=== PATIENT | male | born 1955 | race Caucasian/White ===

== ENCOUNTER 2017-08-06 07:36 | Day surgery (SDC) | payer MEDICARE, BC ==
[2017-08-05 08:47] VITALS: BMI 39.0
[~2017-08-06 07:36] MED LIST: LACTATED RINGERS 1,000 ML IV SCH
[2017-08-06 08:57] VITALS: TEMP 97.8
[2017-08-06] MEDS ORDERED: LIDOCAINE 1% 20 ML VIAL (10MG/ML) FOR IV START INTRADERMA ONE (09:10)
[2017-08-06 09:14] LABS: Glucose,Whole Blood 111 mg/dL (75-99)
[2017-08-06] MEDS ORDERED: GLYCOPYRROLATE 0.2 MG/ML 2 ML VIAL ONE (09:28)
[2017-08-06] MEDS ORDERED: LIDOCAINE 1% INJ 10MG/ML (20 ML MDV) ONE (09:28)
[2017-08-06] MEDS ORDERED: PROPOFOL 10 MG/ML 20 ML VIAL IV ONE (09:28)
--- NOTE | 2017-08-06 09:55 | P.PCN ---
Date of Procedure: 08/06/17 Procedure(s) Performed: Brief history: Patient is a pleasant 61-year-old white male, scheduled for an elective upper endoscopy as well as colonoscopy as a part of evaluation of right-sided abdominal pain for the last 6 months duration. He occasionally has diarrhea. Pain radiates to the back and occasional epigastric area. CT of the abdomen and pelvis done in February 2017 showed diverticulosis. Lately his symptoms have been progressively getting worse and hence he scheduled for an upper endoscopy as well as colonoscopy to evaluate further. Procedure performed: Esophagogastroduodenoscopy with biopsy Colonoscopy with snare polypectomy Preoperative diagnosis: Abdominal pain Change in bowel habits Anesthesia: MAC Procedure: After informed consent was obtained from the patient was brought into the endoscopy unit and IV sedation was administered by anesthesia under continuous monitoring. Initially upper endoscopy was done. The Olympus GF 160 video endoscope was inserted inserted into the mouth and esophagus intubated without any difficulty and was gradually advanced into the stomach and duodenum and carefully examined. The bulb and second part of the duodenum appeared normal. The scope was then withdrawn into the stomach adequately insufflated with air and upon careful examination the antrum had diffuse linear areas of erythema consistent with gastritis and biopsies were done from this area. The body, cardia and fundus appeared normal. The scope was then withdrawn into the esophagus. The GE junction was located at 40 cm to the incisors. there was a 1 cm polyp at the GE junction which was biopsied. It appeared regular with no erythema erosions or ulcerations. Rest of the esophagus appeared normal. Patient tolerated the procedure well. At this time the patient continued to remain sedation. Initial digital rectal examination was normal. Olympus CF 160 video colonoscope was then inserted into the rectum and gradually advanced to the ascending colon where ileocolic anastomosis was visualized and appeared normal. The ascending colon, transverse colon, descending colon, appeared normal in the sigmoid colon there were scattered diverticulosis seen. There was a 1 cm sigmoid colon polyp identified at 30 cm from the anal verge which was removed by snare polypectomy. Rest of thesigmoid colon and rectum appeared normal. Retroflexion was performed in the rectum and no lesions were noted. Patient tolerated the procedure well. Impression: 1. Upper endoscopy revealed 1 cm GE junction polyp status post biopsy and antral diffuse gastritis 2. Colonoscopy revealed 1 cm sigmoid colon polyp status post polypectomy and scattered sigmoid diverticulosis. Recommendations: Findings of this examination were discussed with the patient as well as his family. He was advised to follow with the biopsy results. He'll be seen in office in 2 weeks.
[2017-08-06 10:00] VITALS: PULSE 67
[2017-08-06 10:07] LABS: Glucose,Whole Blood 104 mg/dL (75-99)
[2017-08-06 10:22] VITALS: BP 129/88; RESP 18
== END 2017-08-06 11:05 | disposition home or self-care (01) ==
LOC: ORWHC2ENDO 07:36
PROVIDERS: ATTEND Internal Medicine Gastroenterology
DX: K29.50 Unspecified chronic gastritis without bleeding (principal); K51.40 Inflammatory polyps of colon without complications; K57.30 Diverticulosis of large intestine without perforation or abscess without bleeding; I10 Essential (primary) hypertension; E78.5 Hyperlipidemia, unspecified; E11.9 Type 2 diabetes mellitus without complications; Z85.46 Personal history of malignant neoplasm of prostate; Z79.4 Long term (current) use of insulin; Z79.899 Other long term (current) drug therapy; Z98.0 Intestinal bypass and anastomosis status
CPT/HCPCS: 88305; 45385; 43239; J2001; J2704

== ENCOUNTER → 2017-09-10 | Day surgery (SDC) | payer MEDICARE, BC ==
[2017-09-07 08:48] VITALS: BMI 39.0
[~2017-09-10] MED LIST changes: +LIDOCAINE 1% 20 ML VIAL (10MG/ML) FOR IV START INTRADERMA PRN; +LIDOCAINE 1% INJ 10MG/ML (20 ML MDV) ONE; +MIDAZOLAM 2 MG/2 ML VIAL ONE; +PROPOFOL 10 MG/ML 20 ML VIAL IV ONE; +SODIUM CHLORIDE 0.9% 1,000 ML IV SCH; +fentaNYL (PF) 50 MCG/ML 2 ML AMP ONE
[2017-09-10 09:07] LABS: Glucose,Whole Blood 97 mg/dL (75-99)
[2017-09-10 09:17] VITALS: RESP 18; TEMP 98.2
[2017-09-10] MEDS: BENZOCAINE SPRAY 1 CAN MUCOUS MEM ONE ×2 (10:08→10:16)
--- NOTE | 2017-09-10 10:44 | P.PCN ---
Date of Procedure: 09/10/17 Preoperative Diagnosis: Severe aortic stenosis Postoperative Diagnosis: The same Procedure(s) Performed: CHANDU with brief general anesthesia Description of Procedure: INDICATION: This is a 60-year-old gentleman with history of hypertension, hypercholesteremia, and diabetes who is known to have aortic stenosis. Recent echocardiogram showed advanced aortic stenosis with a peak gradient of 70 and mean of 54. Patient is advised to have a CHANDU examination for further evaluation CONSENT:. Informed consent was obtained from the patient and family verbally PROCEDURE: Patient was brought to the lab in a fasting state. He was prepped and draped in the usual fashion. Department of anesthesia administered IV sedation. The throat was sprayed with Cetacaine. A lubricated Omni probe was introduced into the oropharynx and was advanced into the esophagus. Multiple views were obtained both from the esophagus and stomach. No immediate complications. During the procedure, Patient oxygen saturation dropped, requiring Ambu bag ventilation which was administered by department of anesthesia FINDINGS: The aortic valve is tricuspid and calcified with restricted opening excursion. By planimetry valve area 0.8-1 cm was obtained. A peak gradient of 55 with a mean of 32 was obtained. The left atrial appendage is free of clot. The mitral valve and Paxil function appeared within normal. There is no evidence of PFO. Left ankle function appear to be normal. There is no plaque in the aorta. IMPRESSION: #1. Severe aortic stenosis. #2. No clot in left atrial appendage #3. No PFO PLAN: Cardiac catheterization and possible aortic valve replacement
[2017-09-10 12:17] VITALS: PULSE 50
[2017-09-10 12:20] VITALS: BP 134/65
== END ==
LOC: CATHCVL 08:42
PROVIDERS: ATTEND Internal Medicine Cardiovascular Disease
DX: I35.0 Nonrheumatic aortic (valve) stenosis (principal); C61 Malignant neoplasm of prostate; R94.31 Abnormal electrocardiogram [ECG] [EKG]; E11.9 Type 2 diabetes mellitus without complications; I10 Essential (primary) hypertension; E78.00 Pure hypercholesterolemia, unspecified; R01.1 Cardiac murmur, unspecified; I49.40 Unspecified premature depolarization; Z79.4 Long term (current) use of insulin; Z79.899 Other long term (current) drug therapy; Z79.891 Long term (current) use of opiate analgesic; Z87.891 Personal history of nicotine dependence
CPT/HCPCS: 93312; 93320; 93325; J2250; J2001; J3010; J2704

== ENCOUNTER 2017-09-27 11:08 | Day surgery (SDC) | payer MEDICARE, BC ==
[2017-09-24 08:24] VITALS: BMI 39.0
[~2017-09-27 11:08] MED LIST changes: +ALPRAZolam 0.25 MG TAB PO PRN; +ASPIRIN 325 MG TAB PO ONE; -LACTATED RINGERS 1,000 ML IV SCH; -LIDOCAINE 1% 20 ML VIAL (10MG/ML) FOR IV START INTRADERMA PRN; -LIDOCAINE 1% INJ 10MG/ML (20 ML MDV) ONE; -MIDAZOLAM 2 MG/2 ML VIAL ONE; -PROPOFOL 10 MG/ML 20 ML VIAL IV ONE; -SODIUM CHLORIDE 0.9% 1,000 ML IV SCH; +SODIUM CHLORIDE 0.9% 1,000 ML in EMPTY BAG 1 BAG IV ONE; -fentaNYL (PF) 50 MCG/ML 2 ML AMP ONE
[2017-09-27 11:42] LABS: Glucose,Whole Blood 93 mg/dL (75-99)
[2017-09-27] MEDS ORDERED: LIDOCAINE 2% INJ 20 MG/ML (20 ML MDV) ONE (11:51)
[2017-09-27 11:53] LABS: Basophils % (A) 0 %; Eosinophils # (A) 0.2 k/uL (0-0.7); Eosinophils % (A) 4 %; HCT 41.6 % (39.0-53.0); HGB 14.1 gm/dL (13.0-17.5); Lymphocytes # (A) 0.8 k/uL (1.0-4.8); Lymphocytes % (A) 16 %; MCH 28.2 pg (25.0-35.0); MCHC 33.9 g/dL (31.0-37.0); Mean Platelet Volume 7.7; Monocytes # (A) 0.4 k/uL (0-1.0); Monocytes % (A) 7 %; Neutrophils # (A) 3.4 k/uL (1.3-7.7); Neutrophils % (A) 71 %; Platelet Count 187 k/uL (150-450); RBC 5.01 m/uL (4.30-5.90); RDW 13.5 % (11.5-15.5); WBC 4.8 k/uL (3.8-10.6)
[2017-09-27 11:56] LABS: Anion Gap 12 mmol/L; Blood Urea Nitrogen 13 mg/dL (9-20); Carbon Dioxide 30 mmol/L (22-30); Chloride 102 mmol/L (98-107); Glucose 94 mg/dL (74-99); Potassium 3.8 mmol/L (3.5-5.1); Sodium 144 mmol/L (137-145)
[2017-09-27] MEDS ORDERED: MIDAZOLAM 2 MG/2 ML VIAL ONE (12:08)
[2017-09-27] MEDS ORDERED: fentaNYL (PF) 50 MCG/ML 2 ML AMP ONE (12:08)
[2017-09-27] MEDS: MIDAZOLAM 2 MG/2 ML VIAL IVP ONE ×2 (12:18→12:24)
[2017-09-27] MEDS ORDERED: fentaNYL (PF) 50 MCG/ML 2 ML AMP IVP ONE (12:18)
[2017-09-27] MEDS ORDERED: LIDOCAINE 2% INJ 20 MG/ML SQ ONE (12:24)
[2017-09-27 12:57] LABS: O2 Sat Blood Gas 72.8 %
[2017-09-27 13:00] LABS: O2 Sat Blood Gas 93.1 %
[2017-09-27] MEDS ORDERED: HYDROcodone/APAP 5-325MG 1 EACH TAB PO PRN (13:24)
[2017-09-27] MEDS ORDERED: RX INFO: IV CONTRAST WAS GIVEN 1 EACH MISC MISCELLANE PRN (13:24)
[2017-09-27] MEDS ORDERED: SODIUM CHLORIDE 0.9% 1,000 ML IV SCH (13:30)
--- NOTE | 2017-09-27 13:37 | P.PCN ---
Date of Procedure: 09/27/17 Preoperative Diagnosis: Aortic stenosis Postoperative Diagnosis: Moderate aortic stenosis Procedure(s) Performed: Left heart catheterization without left ventriculography, right heart catheterization Description of Procedure: HISTORY: This is a 62-year-old gentleman with history of diabetes and hypertension who is known to have aortic stenosis. On recent evaluation. Patient appeared to have increasing gradient with a peak gradient of 50. Patient had a CHANDU examination which was also size to of possible severe aortic stenosis. Patient is advised to have cardiac catheterization to assess aortic stenosis and also to rule out coronary artery disease. CONSENT:I have discussed the risks, benefits and alternative therapies for the above-mentioned procedure and for both sedation/analgesia as well as necessary blood product administration, if indicated, as they pertain to this patient. The patient has indicated understanding and acceptance of the risks and procedures discussed. [] PROCEDURE: Right heart catheterization:Patient was brought to the lab in a fasting state. Patient was given some IV sedation. The right groin is infiltrated with lidocaine and right femoral Pain was entered using Seldinger technique. A 7-Cymro catheter was left in place And right heart catheterization was performed using Drumore-Lyle catheter. Patient tolerated the procedure well. Hemostasis was obtained with the manual compression. Left heart catheterization: Left heart catheterization was done from the right groin. The right femoral artery was entered using Seldinger technique. A 6-Cymro sheath is left in place.Left heart catheterization was performed using Xuan catheters. The aortic valve was crossed using a multipurpose catheter and straight glide catheter. Hemostasis was obtained with Angio-Seal, after performing femoral angiogram. Noimmediate complications were noted and patient was transferred to [facility] in a stable condition Conscious Sedation: Versed []mg Fentanyl 50 g Duration 52 minutes HEMODYNAMICS: Right heart catheterization: The right atrial pressure was 7. Right ventricular pressure was 37/6. The pulmonary artery pressure is 41/11/ 26. Pulmonary wedge pressure is about 12-16. The cardiac output by thermodilution method was 8.6 L and about 7.54 L with the Ramu method. There is no stepup in oxygen saturation. Oxygen saturation in the PDA is 72 in our is 72 and FA was 93.1. Left heart catheterization: The aortic pressure is 150/ 70. Left ankle end-diastolic pressure was 12-16. The peak gradient across the aortic valve was 40. The mean of 36. The valve area is about 1.5-1.6. SELECTIVE CORONARY ARTERIOGRAPHY: [] LEFT MAIN: Normal length and patent THE LEFT ANTERIOR DESCENDING CORONARY ARTERY: This is a relatively small caliber vessel with mild disease at the origin of the second diagonal branch involving the diagonal branch. No critical lesions are noted THE LEFT CIRCUMFLEX AND IS CORONARY ARTERY: This is a good caliber vessel free of any significant occlusive di THE INTERMEDIATE CORONARY ARTERY: This is small caliber vessel and free of occlusive disease THE RIGHT CORONARY ARTERY: This is a dominant vessel giving rise to PDA and PLV. Slightly ectatic in origin. It gives rise to PDA and PLV and the right ventricular branch. Free of any occlusive disease LEFT VENTRICULOGRAPHY: Not performed FINAL IMPRESSION: Mild disease in the LAD at the origin of the second diagonal. Moderate aortic stenosis PLAN: Continuation maximum medical therapy. Follow up with echocardiography PROGNOSIS: Fair
[2017-09-27] MEDS ORDERED: IOPAMIDOL-370 125ML BTL INJ ONE (13:38)
[2017-09-27] MEDS ORDERED: LABETALOL 5 MG/ML VIAL MDV IVP STA (14:34)
[2017-09-27 16:40] VITALS: RESP 16; TEMP 98.1
[2017-09-27 20:04] VITALS: BP 158/68; PULSE 65
== END 2017-09-27 20:10 | disposition home or self-care (01) ==
LOC: CATHCVL 11:08 → 3OBS 13:18 → CATHCVL 20:10
PROVIDERS: ATTEND Internal Medicine Cardiovascular Disease
DX: I35.0 Nonrheumatic aortic (valve) stenosis (principal); I10 Essential (primary) hypertension; E78.00 Pure hypercholesterolemia, unspecified; E11.9 Type 2 diabetes mellitus without complications; I49.3 Ventricular premature depolarization; Z79.4 Long term (current) use of insulin; Z79.899 Other long term (current) drug therapy; Z87.891 Personal history of nicotine dependence
CPT/HCPCS: 93460; 80048; 85018; 82810; 85025; C1760; C1769 ×2; C1894 ×2; J2001; J2250; J3010; Q9967

== ENCOUNTER 2019-03-11 21:44 | Inpatient (IN) | payer MEDICARE, BC ==
[2019-03-11] MEDS ORDERED: PNEUMONIA PROTOCOL UTILIZED 1 EACH MISC PO PRN (21:47)
[2019-03-11] MEDS ORDERED: POTASSIUM BICARBONATE/CIT AC 20 MEQ TABLET.EFF PO ONE (21:47)
[2019-03-11] MEDS ORDERED: LEVOFLOXACIN 750MG-D5W PMX 750 MG in DEXTROSE/WATER 1 150ML.BAG IVPB STA (21:47)
[2019-03-11] MEDS ORDERED: MORPHINE SULFATE 4 MG/ML SYRINGE IV PRN (21:47)
--- NOTE | 2019-03-11 21:51 | ED ---
SOB HPI - General Stated Complaint: Pneumonia Time Seen by Provider: 03/11/19 21:47 Source: RN notes reviewed, old records reviewed Limitations: no limitations - History of Present Illness Initial Comments: This is a Is 63-year-old male the ER for evaluation patient is today for evaluation, patient accepted in transfer from outside facility for shortness of breath and chest pain chest pain 2 days. Patient has not been eating or drinking for a week. Not feeling well. Patient has no recent travel history or sick contacts does have inpatient hospitalization as of late. Surgery at [facility]. Patient at this time is in no acute distress chest pain is resolved no shortness of breath. No fever - Related Data Home Medications Medication Instructions Recorded Confirmed Doxazosin [Cardura] 4 mg PO HS 12/27/15 09/27/17 Insulin Detemir (Levemir) [Levemir] 50 unit SQ BID 12/27/15 09/27/17 Metoprolol Succinate [Toprol XL] 100 mg PO DAILY 12/27/15 09/27/17 Pioglitazone HCl [Actos] 30 mg PO HS 12/27/15 09/27/17 amLODIPine BESYLATE [Norvasc] 10 mg PO DAILY 12/27/15 09/27/17 Atorvastatin [Lipitor] 40 mg PO HS 08/05/17 09/27/17 Dicyclomine HCl 10 mg PO TID PRN 08/05/17 09/24/17 Valsartan/Hydrochlorothiazide 2 each PO DAILY 08/05/17 09/27/17 [Valsartan-Hctz 160-25 mg Tab] buPROPion XL [Wellbutrin XL] 300 mg PO DAILY 08/05/17 09/27/17 Aspirin [Adult Aspirin] 81 mg PO HS 09/07/17 09/27/17 Dulaglutide [Trulicity] 0.75 mg SQ LENZ 09/07/17 09/27/17 Allergies Allergy/AdvReac Type Severity Reaction Status Date / Time No Known Allergies Allergy Verified 09/24/17 08:20 Review of Systems ROS Statement: Those systems with pertinent positive or pertinent negative responses have been documented in the HPI. ROS Other: All systems not noted in ROS Statement are negative. Past Medical History Past Medical History: Cancer, Diabetes Mellitus, Hyperlipidemia, Osteoarthritis (OA), Prostate Disorder Additional Past Medical History / Comment(s): hx PROSTATE CANCER tx with radiation, See Dr Roy H&P, IBS, History of Any Multi-Drug Resistant Organisms: None Reported Past Surgical History: Appendectomy, Bowel Resection, Cholecystectomy, Hernia Repair, Orthopedic Surgery, Tonsillectomy Additional Past Surgical History / Comment(s): CHANDU 09/10/17, synvisc injections into bilateral legs, benign growth removed from intestine, rt knee arthroscopy Past Anesthesia/Blood Transfusion Reactions: Postoperative Nausea & Vomiting (PONV) Smoking Status: Never smoker - Past Family History Mother Family Medical History: No Reported History General Exam General appearance: alert, in no apparent distress Head exam: Present: atraumatic, normocephalic, normal inspection Eye exam: Present: normal appearance, PERRL, EOMI. Absent: scleral icterus, conjunctival injection, periorbital swelling ENT exam: Present: normal exam, mucous membranes moist Neck exam: Present: normal inspection. Absent: tenderness, meningismus, lymphadenopathy Respiratory exam: Present: normal lung sounds bilaterally. Absent: respiratory distress, wheezes, rales, rhonchi, stridor Cardiovascular Exam: Present: regular rate, normal rhythm, normal heart sounds. Absent: systolic murmur, diastolic murmur, rubs, gallop, clicks GI/Abdominal exam: Present: soft, normal bowel sounds. Absent: distended, tenderness, guarding, rebound, rigid Extremities exam: Present: normal inspection, full ROM, normal capillary refill. Absent: tenderness, pedal edema, joint swelling, calf tenderness Back exam: Present: normal inspection Neurological exam: Present: alert, oriented X3, CN II-XII intact Psychiatric exam: Present: normal affect, normal mood Skin exam: Present: warm, dry, intact, normal color. Absent: rash Course - Reevaluation(s) Reevaluation #1: 03/11/19 21:50 Medical record is reviewed Reevaluation #2: 03/11/19 21:50 No Current pain or complaint 03/11/19 21:51 - Consultations Consultation #1: Spoke with Dr. Archibald who is okay for admission Medical Decision Making - Medical Decision Making 63 male with require hospital. Pneumonia will admit for IV antibiotics and br eathing treatments will also trend patient's troponin secondary to chest pain Disposition Clinical Impression: Chest pain, Nosocomial pneumonia Disposition: ADMITTED IP TO THIS HOSP Condition: Good Is patient prescribed a controlled substance at d/c from ED?: No Referrals: Margaret Grant DO [Primary Care Provider] - 1-2 days
[2019-03-11] MEDS: SODIUM CHLORIDE 0.9% 1,000 ML IV SCH (22:46)
[2019-03-11] MEDS ORDERED: PIPERACILLIN-TAZOBACTAM 3.375 GM in SODIUM CHLORIDE 0.9% 100 ML IVPB SCH (23:00)
[2019-03-12] MEDS ORDERED: ACETAMINOPHEN TAB 325 MG TAB PO PRN (06:29)
[2019-03-12] MEDS ORDERED: ALPRAZolam 0.25 MG TAB PO PRN (06:29)
[2019-03-12] MEDS ORDERED: LIDOCAINE 5% OINTMENT 50 GM JAR TOPICAL PRN (06:29)
[2019-03-12] MEDS ORDERED: HYDROcodone/APAP 5-325MG 1 EACH TAB PO PRN (06:29)
[2019-03-12] MEDS ORDERED: INSULIN DETEMIR (LEVEMIR) 100 UNIT/ML SYR SQ SCH (07:00)
--- NOTE | 2019-03-12 07:03 | XR ---
EXAMINATION TYPE: XR chest 2V DATE OF EXAM: 03/12/2019 HISTORY: pneumonia. REFERENCE: NONE. FINDINGS: Heart size upper limits of normal. There is scarring or atelectasis the left lung base. The re are bibasilar infiltrates. Pleural spaces are clear. IMPRESSION: BIBASILAR AREAS OF SCARRING OR ATELECTASIS WELL BIBASILAR INFILTRATES.
[2019-03-12 07:10] LABS: Glucose,Whole Blood 72 mg/dL (75-99)
[2019-03-12 07:19] LABS: Basophils % (A) 0 %; Eosinophils % (A) 0 %; HCT 36.5 % (39.0-53.0); HGB 12.2 gm/dL (13.0-17.5); Lymphocytes # (A) 0.5 k/uL (1.0-4.8); Lymphocytes % (A) 7 %; MCH 26.3 pg (25.0-35.0); MCHC 33.4 g/dL (31.0-37.0); MCV 78.7 fL (80.0-100.0); Mean Platelet Volume 6.2; Monocytes # (A) 0.4 k/uL (0-1.0); Monocytes % (A) 6 %; Neutrophils # (A) 6.5 k/uL (1.3-7.7); Neutrophils % (A) 85 %; Platelet Count 289 k/uL (150-450); RBC 4.64 m/uL (4.30-5.90); RDW 14.1 % (11.5-15.5); WBC 7.6 k/uL (3.8-10.6)
[2019-03-12 07:43] LABS: ALT 131 U/L (21-72); AST 237 U/L (17-59); African American GFR (CKD) >90 (>60 ml/min/1.73 sqM); Albumin 3.1 g/dL (3.5-5.0); Alkaline Phosphatase 106 U/L (38-126); Anion Gap 11 mmol/L; Blood Urea Nitrogen 16 mg/dL (9-20); Calcium 8.5 mg/dL (8.4-10.2); Carbon Dioxide 24 mmol/L (22-30); Chloride 101 mmol/L (98-107); Cholesterol 127 mg/dL (<200); Glucose 68 mg/dL (74-99); HDL Cholesterol 20 mg/dL (40-60); LDL Cholesterol,Calculated 84 mg/dL (0-99); Sodium 136 mmol/L (137-145); Total Bilirubin 0.6 mg/dL (0.2-1.3); Total Protein 6.8 g/dL (6.3-8.2); Triglycerides 114 mg/dL (<150)
[2019-03-12] MEDS ORDERED: IPRATROPIUM-ALBUTEROL 3 ML NEB INHALATION SCH (08:00)
--- NOTE | 2019-03-12 08:13 | P.HPIM ---
History of Present Illness H&P Date: 03/12/19 Chief Complaint: Weakness, chest pain This is a 63-year-old male who presented to the emergency room for evaluation for weakness and chest pain. Patient was seen at [facility] with a complaint of shortness of breath and chest pain 2 days. Patient states that he has not been eating or drinking very much of this week due to feeling poorly. Patient has had chest pain for about a week and progressively felt weaker prior to going to the hospital. Patient had an episode of weakness that resulted in syncope where he hit his head resulting in a bruise to the forehead. Patient denies any loss of consciousness at that time. That episode prompted him to be evaluated in the emergency room. Patient has a significant history of recurrent prostate cancer. Patient was seen in [facility] in October where he underwent a ICU TURP procedure with Dr. Da Silva. Approximate 2 weeks after the procedure patient had episodes of diarrhea. 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 The indwelling catheter was placed at that time. Patient is seen every 3 weeks to have the catheter change. 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 At this time patient is resting in bed without any acute distress. Patient is not having any complaints of chest pain or difficulty breathing at this time. Patient has been afebrile. Indwelling c atheter is in place. Patient states that he was found to have low potassium and thinks that many of his symptoms may be from that. Review of Systems Review Of Systems: Constitutional: No fever, no chills, no night sweats. No weight change. No weakness, fatigue or lethargy. No daytime sleepiness. EENT: No headache. No blurred vision or double vision, no loss of vision. No loss of Hearing, no ringing in the ears, no dizziness. No nasal drainage or congestion. No epistaxis. No sore throat. Lungs: No shortness of breath, cough, no sputum production. No wheezing. Cardiovascular: No chest pain, no lower extremity edema. No palpitations. No paroxysmal nocturnal dyspnea. No orthopnea. No lightheadedness or dizziness. No syncopal episodes. Abdominal: no abdominal discomfort. No nausea, vomiting. no diarrhea. No constipation. No bloody or tarry stools. no loss of appetite. Genitourinary: No dysuria, increased frequency, or urgency. No urinary ret ention. Musculoskeletal: No myalgias. No muscle weakness, no gait dysfunction, no frequent falls. No back pain. No neck pain. Integumentary: No wounds, no lesions. No rash or pruritus. No unusual bruising. No change in hair or nails. Neurologic: No aphasia. No facial droop. No change in mentation. No head injury. No headache. No paralysis. No paresthesia. Psychiatric: No depression. No anxiety. No mood swings. Endocrine: No abnormal blood sugars. No weight change. No excessive sweating or thirst. Past Medical History Past Medical History: Cancer, Diabetes Mellitus, Hyperlipidemia, Hypertension, Osteoarthritis (OA), Prostate Disorder Additional Past Medical History / Comment(s): hx PROSTATE CANCER tx with radiation, See Dr Roy H&P, IBS, History of Any Multi-Drug Resistant Organisms: None Reported Past Surgical History: Appendectomy, Bowel Resection, Cholecystectomy, Hernia Repair, Orthopedic Surgery, Tonsillectomy Additional Past Surgical History / Comment(s): CHANDU 09/10/17, synvisc injections into bilateral legs, benign growth removed from intestine, rt knee arthroscopy Past Anesthesia/Blood Transfusion Reactions: Postoperative Nausea & Vomiting (PONV) Past Psychological History: Anxiety, Depression Smoking Status: Never smoker Past Alcohol Use History: Occasional Past Drug Use History: None Reported - Past Family History Mother Family Medical History: No Reported History Medications and Allergies Home Medications Medication Instructions Recorded Confirmed Type Insulin Detemir (Levemir) [Levemir] 46 unit SQ BID 12/27/15 03/11/19 History Metoprolol Succinate [Toprol XL] 100 mg PO DAILY 12/27/15 03/11/19 History amLODIPine BESYLATE [Norvasc] 10 mg PO DAILY 12/27/15 03/11/19 History Atorvastatin [Lipitor] 40 mg PO HS 08/05/17 03/11/19 History Valsartan/Hydrochlorothiazide 2 tab PO DAILY 08/05/17 03/11/19 History [Valsartan-Hctz 160-25 mg Tab] buPROPion XL [Wellbutrin XL] 300 mg PO DAILY 08/05/17 03/11/19 History ALPRAZolam [Xanax] 0.25 mg PO TID PRN 03/11/19 03/11/19 History Acetaminophen Tab [Tylenol Tab] 650 mg PO Q4H PRN 03/11/19 03/11/19 History Ciprofloxacin HCl [Cipro] 500 mg PO BID 03/11/19 03/11/19 History Doxazosin [Cardura] 4 mg PO HS 03/11/19 03/11/19 History Dulaglutide [Trulicity] 1.5 mg SQ LENZ 03/11/19 03/11/19 History HYDROcodone/APAP 5-325MG [[place] 1 tab PO Q6HR PRN 03/11/19 03/11/19 History 5-325] Lidocaine 5% Oint [Xylocaine 5% 1 applic TOPICAL TID PRN 03/11/19 03/11/19 History Oint] Multivitamins, Thera [Multivitamin 1 tab PO DAILY 03/11/19 03/11/19 History (formulary)] [place]-3 Fatty Acids/Fish Oil [Fish 1 cap PO DAILY 03/11/19 03/11/19 History Oil 1,000 mg Softgel] Turmeric Root Extract [Turmeric] 1,000 mg PO DAILY 03/11/19 03/11/19 History Vits A,C,E/Lutein/Minerals 1 tab PO DAILY 03/11/19 03/11/19 History [Ocuvite with Lutein Tablet] metFORMIN HCL ER [Glucophage Xr] 500 mg PO BID 03/11/19 03/11/19 History Allergies Allergy/AdvReac Type Severity Reaction Status Date / Time No Known Allergies Allergy Verified 03/11/19 22:21 Physical Exam Vitals: Vital Signs Temp Pulse Pulse Resp BP BP Pulse Ox 03/12/19 07:00 98.3 F 81 18 147/80 95 03/11/19 23:30 98.2 F 76 16 149/71 95 03/11/19 21:56 18 03/11/19 21:46 98.9 F 82 160/78 96 Intake and Output 03/11/19 03/12/19 03/12/19 23:59 06:59 14:59 Intake Total 200 Balance 200 Intake: Intake, IV Titration Amount Piperacillin-Tazobactam 3 .375 gm In Sodium Chloride 0.9% 100 ml @ 25 mls/hr IVPB Q8H [facility] Rx#: [id number] Sodium Chloride 0.9% 1, 000 ml @ 100 mls/hr IV . Q10H [facility] Rx#:[id number] Oral 200 Other: Voiding Method # Voids Weight General Appearance: Alert, cooperative, no distress, appears stated age. Neck HEENT: Supple, no lymphadenopathy, no thyroid enlargement, no carotid bruits. Lungs: Clear to auscultation without crackles or wheezes no rhonchi, no deformity. Chest Wall: Chest wall normal expansion with deep inspiration no tenderness and no deformity was found on exam, no costochondral pain or discomfort. Heart: Regular rate and rhythm, S1, S2 normal, no murmur, rub or gallop. Back: Symmetric, no curvature, ROM normal, no CVA tenderness. Abdomen: Soft, non-tender, no rebound or rigidity, no hepatosplenomegaly. Extremities: Extremities normal, atraumatic, no cyanosis or edema. Pulses: 2+ and symmetric. Skin: Skin color, texture, tugor normal, no rashes or lesions. Neurologic: Alert oriented x3 cranial nerves II through XII intact, no motor deficit, no abnormal balance or gait Results CBC & Chem 7: 03/12/19 07:00 03/12/19 07:00 Labs: Abnormal Lab Results - Last 24 Hours (Table) 03/12/19 03/12/19 03/12/19 Range/Units 07:00 07:00 07:08 Hgb 12.2 L (13.0-17.5) gm/dL Hct 36.5 L (39.0-53.0) % MCV 78.7 L (80.0-100.0) fL Lymphocytes # 0.5 L (1.0-4.8) k/uL Sodium 136 L (137-145) mmol/L Potassium 3.0 L (3.5-5.1) mmol/L Creatinine 0.60 L (0.66-1.25) mg/dL Glucose 68 L (74-99) mg/dL POC Glucose (mg/dL) 72 L (75-99) mg/dL AST 237 H (17-59) U/L ALT 131 H (21-72) U/L Albumin 3.1 L (3.5-5.0) g/dL HDL Cholesterol 20 L (40-60) mg/dL Thrombosis Risk Factor Assmnt - Choose All That Apply Any of the Below Risk Factors Present?: Yes Each Factor Represents 1 point: Obesity (BMI >25) Other Risk Factors: Yes Each Risk Factor Represents 2 Points: Age 61-74 years Other congenital or acquired thrombophilia - If yes, enter type in comment: No Thrombosis Risk Factor Assessment Total Risk Factor Score: 3 Thrombosis Risk Factor Assessment Level: Moderate Risk Assessment and Plan Plan: 1. Community acquired pneumonia. Ceftriaxone 1 g daily, azithromycin 500 mg daily, Procalcitonin ordered, sputum and blood cultures awaiting. 2. Chest pain secondary to community-acquired pneumonia, as noted above 3. Presyncope unclear etiology possible electrolyte insufficiency rule out UTI related to chronic IDC. Obtain urinalysis and culture if appropriate. 4. Generalized weakness secondary to electrolyte insufficiency. Replace potassium, utilize potassium protocol 5. Hypokalemia. Repeat potassium, potassium protocol in place. 6. 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 Obtain urine sample, 7. Elevated liver enzymes. Obtain ultrasound of liver 8. Diabetes mellitus, Levemir 10 units subcu twice a day, metformin 500 mg twice a day, Trilisate 1.5 mg subcu on Wednesday 9. Hyperlipidemia, atorvastatin 40 mg daily 10. Hypertension. Amlodipine 10 mg daily hydrochlorothiazide 50 mg by mouth daily, valsartan 320 mg by mouth daily, metoprolol 100 mg by mouth daily 11. History of Recurrent prostate CA 12. Depression. Wellbutrin 300 mg by mouth daily 13. GI prophylaxis. Protonix 40 mg daily. 14. DVT prophylaxis. Pneumatic compression stockings and ambulation CODE STATUS: Full code Discharge plan: Possible discharge tomorrow Impression and plan of care have been directed as dictated by the signing physician. Kanika Rowe nurse practitioner acting as scribe for signing physician.
[2019-03-12] MEDS ORDERED: TURMERIC ROOT EXTRACT 1000 MG PO SCH (09:00)
[2019-03-12] MEDS ORDERED: NON FORMULARY DRUG (Omega-3 Fatty Acids/Fish Oil [Fish Oil 1,000 Mg Softgel] 1 CAP) PO SCH (09:00)
[2019-03-12] MEDS ORDERED: NON FORMULARY DRUG (Dulaglutide [Trulicity] 1.5 MG) SQ SCH (09:00)
[2019-03-12] MEDS: ASPIRIN 325 MG TAB PO SCH (09:08)
[2019-03-12] MEDS: MULTIVITAMINS, THERA 1 EACH TAB PO SCH (09:08)
[2019-03-12] MEDS: amLODIPine 10 MG TAB PO SCH (09:08)
[2019-03-12] MEDS: buPROPion XL 300 MG TAB.ER.24H PO SCH (09:08)
[2019-03-12] MEDS: VIT A,C & E-LUTEIN-MINERALS 1 EACH TAB PO SCH (09:08)
[2019-03-12] MEDS: METOPROLOL SUCCINATE (ER) 100 MG TAB.ER.24H PO SCH (09:08)
[2019-03-12] MEDS: metFORMIN 500 MG TAB PO SCH ×2 (09:08→20:42)
[2019-03-12] MEDS: SODIUM CHLORIDE 0.9% 1,000 ML IV SCH ×2 (09:09→16:42)
[2019-03-12] MEDS ORDERED: Potassium Replacement Protocol 1 EACH MISC MISCELLANE PRN (09:11)
[2019-03-12] MEDS ORDERED: PIPERACILLIN-TAZOBACTAM 3.375 GM in SODIUM CHLORIDE 0.9% 100 ML IVPB SCH (10:00)
[2019-03-12 11:38] LABS: Glucose,Whole Blood 118 mg/dL (75-99)
[2019-03-12] MEDS: VALSARTAN 160 MG TAB PO SCH (11:53)
[2019-03-12] MEDS: HYDROCHLOROTHIAZIDE 50 MG TAB PO SCH (11:53)
[2019-03-12] MEDS: POTASSIUM CHLORIDE ER 20 MEQ TAB.ER PO SCH ×2 (11:53→14:06)
--- NOTE | 2019-03-12 12:41 | P.CRDCN ---
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 He has a chronic catheter in place. Patient has been seen by Dr. Roy in the past and underwent heart catheterization in September 2017 finding mild disease in the LAD and moderate aortic stenosis. He underwent a CHANDU that did show severe aortic stenosis. At that time it was discussed that the aortic stenosis would be monitored and no plan for any surgical intervention at that time. Patient is functioning well and able to perform all ADLs without difficulty or limitations. He is currently walking 1-1/2 miles per day. Patient states for the past 1-1-1/2 weeks he has had sudden onset of weakness, not eating or drinking very much. He did have some bilateral lower chest tightness that is currently resolved. He thought initially he was getting bronchitis. He states he got up a couple days ago and fell and couldn't get himself up. He was then taken to [facility] and subsequently transferred to [facility] chief concern for pneumonia. EKG reveals sinus mechanism with no acute ST-T wave changes. Laboratory studies: WBC 7.6, hemoglobin 12.2, platelet count 289. Sodium 136, potassium 3.0, chloride 101, CO2 24, BUN 16 creatinine 0.6, troponins negative on 2 draws. Triglycerides 114, cholesterol 127, LDL 84, HDL 20 Social history: Patient has history of smoking and quit many years ago. In the past he has drank alcohol occasionally and none since diagnosed with cancer. Review Of Systems at the time of evaluation: Constitutional: No fever, no chills, no night sweats. No weight change. Mild generalized weakness. No daytime sleepiness. EENT: No headache. No blurred vision or double vision, no loss of vision. No loss of Hearing, no ringing in the ears, no dizziness. No nasal drainage or congestion. No epistaxis. No sore throat. Lungs: No shortness of breath, cough, no sputum production. No wheezing. Cardiovascular: No chest pain, no lower extremity edema. No palpitations. No p aroxysmal nocturnal dyspnea. No orthopnea. No lightheadedness or dizziness. No syncopal episodes. Abdominal: No abdominal pain. No nausea, vomiting. No diarrhea. No constipation. No bloody or tarry stools.. No loss of appetite. Genitourinary: No dysuria, increased frequency, urgency. No urinary retention. Musculoskeletal: No myalgias. No muscle weakness, no gait dysfunction, no frequent falls. No back pain. No neck pain. Integumentary: No wounds, no lesions. No rash or pruritus. No unusual bruising. No change in hair or nails. Neurologic: No aphasia. No facial droop. No change in mentation. No head injury. No headache. No paralysis. No paresthesia. Psychiatric: No depression. No anxiety. No mood swings. Endocrine: No abnormal blood sugars. No weight change. No excessive sweating or thirst. No cold intolerance. No weight change. Gen: This is a 63-year-old male. He is resting in bed and appears to be comfortable and in no acute distress. Blood pressure 147/80, heart rate 81, pulse ox 95% on room air, afebrile HEENT: Head is atraumatic, normocephalic. Pupils equal, round. Sclerae is anicteric. NECK: Supple. No JVD. No lymphadenopathy. No thyromegaly. LUNGS: Clear to auscultation. No wheezes or rhonchi. No intercostal retractions. HEART: Regular rate and rhythm. 3/6 systolic murmur. ABDOMEN: Soft. Bowel sounds are present. No masses. No tenderness. EXTREMITIES: No pedal edema. No calf tenderness. NEUROLOGICAL: Patient is awake, alert and oriented x3. Cranial nerves 2 through 12 are grossly intact. Assessment: Generalized weakness secondary to hypokalemia Symptoms of generalized malaise, poor appetite of unclear etiology, possible pneumonia Atypical chest pain resolved with negative troponins. Acute coronary syndrome ruled out History of moderate aortic stenosis, asymptomatic Prostate cancer Hypertension Hyperlipidemia Diabetes mellitus type 2 Plan: Continue patient on current medications Recommend follow-up with Dr. Roy at least yearly to monitor aortic stenosis Patient is cleared from cardiology for discharge home Thank you kindly for this consultation Nurse practitioner note has been reviewed, I agree with documented findings and plan of care. Patient was seen and examined. Past Medical History Past Medical History: Cancer, Diabetes Mellitus, Hyperlipidemia, Hypertension, Osteoarthritis (OA), Prostate Disorder Additional Past Medical History / Comment(s): hx PROSTATE CANCER tx with radiation, See Dr Roy H&P, IBS, History of Any Multi-Drug Resistant Organisms: None Reported Past Surgical History: Appendectomy, Bowel Resection, Cholecystectomy, Hernia Repair, Orthopedic Surgery, Tonsillectomy Additional Past Surgical History / Comment(s): CHANDU 09/10/17, synvisc injections into bilateral legs, benign growth removed from intestine, rt knee arthroscopy Past Anesthesia/Blood Transfusion Reactions: Postoperative Nausea & Vomiting (PONV) Past Psychological History: Anxiety, Depression Smoking Status: Never smoker Past Alcohol Use History: Occasional Past Drug Use History: None Reported - Past Family History Mother Family Medical History: No Reported History Medications and Allergies Home Medications Medication Instructions Recorded Confirmed Type Insulin Detemir (Levemir) [Levemir] 46 unit SQ BID 12/27/15 03/11/19 History Metoprolol Succinate [Toprol XL] 100 mg PO DAILY 12/27/15 03/11/19 History amLODIPine BESYLATE [Norvasc] 10 mg PO DAILY 12/27/15 03/11/19 History Atorvastatin [Lipitor] 40 mg PO HS 08/05/17 03/11/19 History Valsartan/Hydrochlorothiazide 2 tab PO DAILY 08/05/17 03/11/19 History [Valsartan-Hctz 160-25 mg Tab] buPROPion XL [Wellbutrin XL] 300 mg PO DAILY 08/05/17 03/11/19 History ALPRAZolam [Xanax] 0.25 mg PO TID PRN 03/11/19 03/11/19 History Acetaminophen Tab [Tylenol Tab] 650 mg PO Q4H PRN 03/11/19 03/11/19 History Ciprofloxacin HCl [Cipro] 500 mg PO BID 03/11/19 03/11/19 History Doxazosin [Cardura] 4 mg PO HS 03/11/19 03/11/19 History Dulaglutide [Trulicity] 1.5 mg SQ LENZ 03/11/19 03/11/19 History HYDROcodone/APAP 5-325MG [[place] 1 tab PO Q6HR PRN 03/11/19 03/11/19 History 5-325] Lidocaine 5% Oint [Xylocaine 5% 1 applic TOPICAL TID PRN 03/11/19 03/11/19 History Oint] Multivitamins, Thera [Multivitamin 1 tab PO DAILY 03/11/19 03/11/19 History (formulary)] [place]-3 Fatty Acids/Fish Oil [Fish 1 cap PO DAILY 03/11/19 03/11/19 History Oil 1,000 mg Softgel] Turmeric Root Extract [Turmeric] 1,000 mg PO DAILY 03/11/19 03/11/19 History Vits A,C,E/Lutein/Minerals 1 tab PO DAILY 03/11/19 03/11/19 History [Ocuvite with Lutein Tablet] metFORMIN HCL ER [Glucophage Xr] 500 mg PO BID 03/11/19 03/11/19 History Allergies Allergy/AdvReac Type Severity Reaction Status Date / Time No Known Allergies Allergy Verified 03/11/19 22:21 Physical Exam Vitals: Vital Signs Temp Pulse Pulse Resp BP BP Pulse Ox 03/12/19 07:00 98.3 F 81 18 147/80 95 03/11/19 23:30 98.2 F 76 16 149/71 95 03/11/19 21:56 18 03/11/19 21:46 98.9 F 82 160/78 96 Intake and Output 03/11/19 03/12/19 03/12/19 23:59 06:59 14:59 Intake Total 200 Balance 200 Intake: Intake, IV Titration Amount Piperacillin-Tazobactam 3 .375 gm In Sodium Chloride 0.9% 100 ml @ 25 mls/hr IVPB Q8H [facility] Rx#: [id number] Sodium Chloride 0.9% 1, 000 ml @ 100 mls/hr IV . Q10H [facility] Rx#:[id number] Oral 200 Other: Voiding Method # Voids Weight Results 03/12/19 07:00 03/12/19 07:00 Cardiac Enzymes 03/12/19 03/12/19 03/12/19 Range/Units 01:33 EST 07:00 07:00 AST 237 H (17-59) U/L Troponin I <0.012 <0.012 (0.000-0.034) ng/mL Lipids 03/12/19 Range/Units 07:00 Triglycerides 114 (<150) mg/dL Cholesterol 127 (<200) mg/dL HDL Cholesterol 20 L (40-60) mg/dL CBC 03/12/19 Range/Units 07:00 WBC 7.6 (3.8-10.6) k/uL RBC 4.64 (4.30-5.90) m/uL Hgb 12.2 L (13.0-17.5) gm/dL Hct 36.5 L (39.0-53.0) % Plt Count 289 (150-450) k/uL Comprehensive Metabolic Panel 03/12/19 Range/Units 07:00 Sodium 136 L (137-145) mmol/L Potassium 3.0 L (3.5-5.1) mmol/L Chloride 101 (98-107) mmol/L Carbon Dioxide 24 (22-30) mmol/L BUN 16 (9-20) mg/dL Creatinine 0.60 L (0.66-1.25) mg/dL Glucose 68 L (74-99) mg/dL Calcium 8.5 (8.4-10.2) mg/dL AST 237 H (17-59) U/L ALT 131 H (21-72) U/L Alkaline Phosphatase 106 (38-126) U/L Total Protein 6.8 (6.3-8.2) g/dL Albumin 3.1 L (3.5-5.0) g/dL Current Medications Generic Name Dose Route Start Last Admin Trade Name Freq PRN Reason Stop Dose Admin Acetaminophen 650 mg 03/12/19 06:29 Tylenol Tab PO Q4H PRN Mild Pain Hydrocodone Bitart/Acetaminophen 1 each 03/12/19 06:29 [place] 5-325 PO Q6HR PRN Moderate Pain Alprazolam 0.25 mg 03/12/19 06:29 Xanax PO TID PRN Anxiety Amlodipine Besylate 10 mg 03/12/19 09:00 03/12/19 09:08 Norvasc PO 10 mg DAILY MELISSA Administration Aspirin 325 mg 03/12/19 09:00 03/12/19 09:08 Aspirin PO 325 mg DAILY MELISSA Administration Atorvastatin Calcium 40 mg 03/12/19 21:00 Lipitor PO HS MELISSA Bupropion HCl 300 mg 03/12/19 09:00 03/12/19 09:08 Wellbutrin Xl PO 300 mg DAILY MELISSA Administration Doxazosin Mesylate 4 mg 03/12/19 21:00 Cardura PO HS MELISSA Hydrochlorothiazide 50 mg 03/12/19 09:00 Hydrodiuril PO DAILY MELISSA Sodium Chloride 1,000 mls @ 100 mls/hr 03/11/19 22:00 03/12/19 09:09 Saline 0.9% IV 100 mls/hr .Q10H MELISSA Administration Azithromycin 500 mg/ Sodium 250 mls @ 250 mls/hr 03/12/19 11:00 Chloride IVPB DAILY MELISSA Ceftriaxone Sodium 1 gm/ 50 mls @ 100 mls/hr 03/13/19 09:00 Sodium Chloride IVPB Q24HR [facility] Insulin Detemir 10 unit 03/12/19 21:00 Levemir SQ BID@0700,2100 MELISSA Lidocaine 1 applic 03/12/19 06:29 Xylocaine 5% Oint TOPICAL TID PRN Topical Pain Metformin HCl 500 mg 03/12/19 09:00 03/12/19 09:08 Glucophage PO 500 mg BID MELISSA Administration Metoprolol Succinate 100 mg 03/12/19 09:00 03/12/19 09:08 Toprol Xl PO 100 mg DAILY MELISSA Administration Miscellaneous Information 1 each 03/12/19 09:11 Potassium Per Protocol MISCELLANE DAILY PRN Per Protocol Protocol Morphine Sulfate 4 mg 03/11/19 21:47 Morphine Sulfate (Inj) IV Q4HR PRN Chest Pain Multivitamins 1 each 03/12/19 09:00 03/12/19 09:08 Theragran PO 1 each DAILY MELISSA Administration Multivitamins/Minerals 1 each 03/12/19 09:00 03/12/19 09:08 Ivite PO 1 each DAILY MELISSA Administration Non-Formulary Medication 1.5 mg 03/12/19 09:00 03/12/19 07:50 Dulaglutide [Trulicity] SQ Not Given LENZ [facility] Valsartan 320 mg 03/12/19 09:00 Diovan PO DAILY MELISSA Intake and Output 03/11/19 03/12/19 03/12/19 23:59 06:59 14:59 Intake Total 200 Balance 200 Intake: Intake, IV Titration Amount Piperacillin-Tazobactam 3 .375 gm In Sodium Chloride 0.9% 100 ml @ 25 mls/hr IVPB Q8H [facility] Rx#: [id number] Sodium Chloride 0.9% 1, 000 ml @ 100 mls/hr IV . Q10H [facility] Rx#:[id number] Oral 200 Other: Voiding Method # Voids Weight 03/12/19 07:00 03/12/19 07:00
[2019-03-12] MEDS: AZITHROMYCIN 500 MG in SODIUM CHLORIDE 0.9% 250 ML IVPB SCH (14:06)
--- NOTE | 2019-03-12 15:11 | US ---
EXAMINATION TYPE: US liver DATE OF EXAM: 03/12/2019 COMPARISON: NONE CLINICAL HISTORY: elevated LFT. EXAM MEASUREMENTS: Liver Length: 19.3 cm Gallbladder Wall: Surgically absent CBD: 0.5 cm Right Kidney: 14.5 x 7.5 x 7.9 cm Technically difficult study due to extensive midline bowel gas Pancreas: not visualized due to midline bowel gas Liver: enlarged. Gallbladder: Surgically absent CBD: wnl Right Kidney: multiple cysts, largest lower pole measures 3.9 x 3.1 x 3.7 cm. IMPRESSION: No dilated ducts. No discrete liver mass. Right renal cortical cysts. No hydronephrosis.
[2019-03-12 15:41] LABS: Appearance,Urine Cloudy (Clear); Bilirubin,Urine Negative (Negative); Blood,Urine Trace (Negative); Color,Urine Yellow; Glucose,Urine (UA) Negative (Negative); Ketones,Urine Negative (Negative); Leukocyte Esterase,Urine Large (Negative); Mucus,Urine Rare /hpf; Nitrite,Urine Negative (Negative); Protein,Urine Trace (Negative); RBC,Urine 8 /hpf (0-5); Specific Gravity,Urine 1.017 (1.001-1.035); Urobilinogen,Urine <2.0 mg/dL (<2.0)
[2019-03-12 16:46] LABS: Glucose,Whole Blood 104 mg/dL (75-99)
[2019-03-12 20:10] LABS: Glucose,Whole Blood 160 mg/dL (75-99)
[2019-03-12] MEDS: INSULIN DETEMIR (LEVEMIR) 100 UNIT/ML SYR SQ SCH (20:42)
[2019-03-12] MEDS ORDERED: ATORVASTATIN 40 MG TAB PO SCH (21:00)
[2019-03-12] MEDS ORDERED: DOXAZOSIN 4 MG TAB PO SCH (21:00)
[2019-03-12] MEDS ORDERED: LEVOFLOXACIN 750MG-D5W PMX 750 MG in DEXTROSE/WATER 1 150ML.BAG IVPB SCH (23:00)
[2019-03-13 06:58] LABS: Glucose,Whole Blood 152 mg/dL (75-99)
[2019-03-13] MEDS: INSULIN DETEMIR (LEVEMIR) 100 UNIT/ML SYR SQ SCH (07:24)
[2019-03-13] MEDS: HYDROCHLOROTHIAZIDE 50 MG TAB PO SCH (07:25)
[2019-03-13] MEDS: metFORMIN 500 MG TAB PO SCH (07:25)
[2019-03-13] MEDS: VIT A,C & E-LUTEIN-MINERALS 1 EACH TAB PO SCH (07:25)
[2019-03-13] MEDS: VALSARTAN 160 MG TAB PO SCH (07:25)
[2019-03-13] MEDS: MULTIVITAMINS, THERA 1 EACH TAB PO SCH (07:26)
[2019-03-13] MEDS: METOPROLOL SUCCINATE (ER) 100 MG TAB.ER.24H PO SCH (07:26)
[2019-03-13] MEDS: ASPIRIN 325 MG TAB PO SCH (07:26)
[2019-03-13] MEDS: buPROPion XL 300 MG TAB.ER.24H PO SCH (07:26)
[2019-03-13] MEDS: amLODIPine 10 MG TAB PO SCH (07:26)
[2019-03-13] MEDS ORDERED: PANTOPRAZOLE 40 MG TABLET PO SCH (07:30)
[2019-03-13 07:38] LABS: Basophils % (A) 0 %; Eosinophils # (A) 0.1 k/uL (0-0.7); Eosinophils % (A) 1 %; HCT 34.5 % (39.0-53.0); HGB 11.6 gm/dL (13.0-17.5); Lymphocytes # (A) 0.7 k/uL (1.0-4.8); Lymphocytes % (A) 12 %; MCH 26.4 pg (25.0-35.0); MCHC 33.7 g/dL (31.0-37.0); MCV 78.3 fL (80.0-100.0); Mean Platelet Volume 6.3; Monocytes # (A) 0.4 k/uL (0-1.0); Monocytes % (A) 7 %; Neutrophils # (A) 4.4 k/uL (1.3-7.7); Neutrophils % (A) 77 %; Platelet Count 299 k/uL (150-450); RBC 4.41 m/uL (4.30-5.90); RDW 14.3 % (11.5-15.5); WBC 5.8 k/uL (3.8-10.6)
[2019-03-13 07:47] LABS: ALT 121 U/L (21-72); AST 169 U/L (17-59); African American GFR (CKD) >90 (>60 ml/min/1.73 sqM); Alkaline Phosphatase 102 U/L (38-126); Anion Gap 8 mmol/L; Blood Urea Nitrogen 10 mg/dL (9-20); Calcium 8.4 mg/dL (8.4-10.2); Carbon Dioxide 26 mmol/L (22-30); Chloride 103 mmol/L (98-107); Glucose 142 mg/dL (74-99); Potassium 3.8 mmol/L (3.5-5.1); Sodium 137 mmol/L (137-145); Total Bilirubin 0.5 mg/dL (0.2-1.3); Total Protein 6.4 g/dL (6.3-8.2)
[2019-03-13 08:42] VITALS: BP 122/77; PULSE 70; RESP 14; TEMP 97.7
[2019-03-13] MEDS: AZITHROMYCIN 500 MG in SODIUM CHLORIDE 0.9% 250 ML IVPB SCH (08:53)
[2019-03-13 11:35] LABS: Hepatitis A Antibody IgM Non-Reactive (Non-Reactive); Hepatitis B Core IgM Non-Reactive (Non-Reactive); Hepatitis B Surface Antigen Non-Reactive (Non-Reactive); Hepatitis C IgG Antibody Non-Reactive (Non-Reactive)
[2019-03-13 11:50] LABS: Glucose,Whole Blood 146 mg/dL (75-99)
--- NOTE | 2019-03-13 15:10 | P.DS ---
Providers Date of admission: 03/11/19 21:47 Expected date of discharge: 03/13/19 Attending physician: Meka Berman Consults: 03/12/19 09:20 Consult Physician Routine Consulting Provider: Niki Roy Consult Reason/Comments: syncope Do you want consulting provider notified?: Yes Primary care physician: Margaret Grant [facility] Course: This is a 63-year-old male who presented to the emergency room for evaluation for weakness and chest pain. Patient was seen at [facility] with a complaint of shortness of breath and chest pain 2 days. Patient states that he has not been eating or drinking very much of this week due to feeling poorly. Patient has had chest pain for about a week and progressively felt weaker prior to going to the hospital. Patient had an episode of weakness that resulted in syncope where he hit his head resulting in a bruise to the forehead. Patient denies any loss of consciousness at that time. That episode prompted him to be evaluated in the emergency room. Patient has a significant history of recurrent prostate cancer. Patient was seen in [facility] in October where he underwent a ICU TURP procedure with Dr. Da Silva. Approximate 2 weeks after the procedure patient had episodes of diarrhea. 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 The indwelling catheter was placed at that time. Patient is seen every 3 weeks to have the catheter change. 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 At this time patient is resting in bed without any acute distress. Patient is not having any complaints of chest pain or difficulty breathing at this time. Patient has been afebrile. Indwelling catheter is in place. Patient states that he was found to have low potassium and thinks that many of his symptoms may be from that. 03/13: Chest x-ray reveals bibasilar areas of scarring or atelectasis as well as bibasilar infiltrates. Liver ultrasound revealed no dilated ducts. No discrete liver mass. Right renal cortical cyst. No hydronephrosis. Repeat lab work reveals normal electrolytes with potassium of 3.8, total bilirubin 0.5, AST 169, ALT 121, phosphatase 102. Hemoglobin 11.6. Patient denies any new complaints. Weakness is improved and he feels much better since receiving potassium replacement. Patient will be discharged home today in stable condition. Discharge diagnoses: 1. Community acquired pneumonia has been ruled out. 2. Chest pain acute coronary syndrome ruled out 3. Presyncope unclear etiology possible electrolyte insufficiency 4. Generalized weakness secondary to electrolyte insufficiency. 5. Hypokalemia. 6. 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 7. Elevated liver enzymes. 8. Diabetes mellitus type II insulin requiring 9. Hyperlipidemia 10. Hypertension 11. History of Recurrent prostate CA 12. Depression, recurrent Discharge plan: home Impression and plan of care have been directed as dictated by the signing physician. Naila Encarnacion nurse practitioner acting as scribe for signing physician. Patient Condition at Discharge: Good Plan - Discharge Summary Discharge Rx Participant: Yes New Discharge Prescriptions: Continue amLODIPine BESYLATE [Norvasc] 10 mg PO DAILY Metoprolol Succinate [Toprol XL] 100 mg PO DAILY Insulin Detemir (Levemir) [Levemir] 46 unit SQ BID Atorvastatin [Lipitor] 40 mg PO HS buPROPion XL [Wellbutrin XL] 300 mg PO DAILY Valsartan/Hydrochlorothiazide [Valsartan-Hctz 160-25 mg Tab] 2 tab PO DAILY Vits A,C,E/Lutein/Minerals [Ocuvite with Lutein Tablet] 1 tab PO DAILY Dulaglutide [Trulicity] 1.5 mg SQ LENZ Multivitamins, Thera [Multivitamin (formulary)] 1 tab PO DAILY [place]-3 Fatty Acids/Fish Oil [Fish Oil 1,000 mg Softgel] 1 cap PO DAILY Lidocaine 5% Oint [Xylocaine 5% Oint] 1 applic TOPICAL TID PRN PRN Reason: Pain HYDROcodone/APAP 5-325MG [[place] 5-325] 1 tab PO Q6HR PRN PRN Reason: Pain Doxazosin [Cardura] 4 mg PO HS ALPRAZolam [Xanax] 0.25 mg PO TID PRN PRN Reason: Anxiety Acetaminophen Tab [Tylenol] 650 mg PO Q4H PRN PRN Reason: Pain Turmeric Root Extract [Turmeric] 1,000 mg PO DAILY metFORMIN HCL ER [Glucophage Xr] 500 mg PO BID Ciprofloxacin HCl [Cipro] 500 mg PO BID #14 tab Discharge Medication List Insulin Detemir (Levemir) [Levemir] 46 unit SQ BID 12/27/15 [History] Metoprolol Succinate [Toprol XL] 100 mg PO DAILY 12/27/15 [History] amLODIPine BESYLATE [Norvasc] 10 mg PO DAILY 12/27/15 [History] Atorvastatin [Lipitor] 40 mg PO HS 08/05/17 [History] Valsartan/Hydrochlorothiazide [Valsartan-Hctz 160-25 mg Tab] 2 tab PO DAILY 08/05/17 [History] buPROPion XL [Wellbutrin XL] 300 mg PO DAILY 08/05/17 [History] ALPRAZolam [Xanax] 0.25 mg PO TID PRN 03/11/19 [History] Acetaminophen Tab [Tylenol] 650 mg PO Q4H PRN 03/11/19 [History] Doxazosin [Cardura] 4 mg PO HS 03/11/19 [History] Dulaglutide [Trulicity] 1.5 mg SQ LENZ 03/11/19 [History] HYDROcodone/APAP 5-325MG [[place] 5-325] 1 tab PO Q6HR PRN 03/11/19 [History] Lidocaine 5% Oint [Xylocaine 5% Oint] 1 applic TOPICAL TID PRN 03/11/19 [History] Multivitamins, Thera [Multivitamin (formulary)] 1 tab PO DAILY 03/11/19 [History] [place]-3 Fatty Acids/Fish Oil [Fish Oil 1,000 mg Softgel] 1 cap PO DAILY 03/11/19 [History] Turmeric Root Extract [Turmeric] 1,000 mg PO DAILY 03/11/19 [History] Vits A,C,E/Lutein/Minerals [Ocuvite with Lutein Tablet] 1 tab PO DAILY 03/11/19 [History] metFORMIN HCL ER [Glucophage Xr] 500 mg PO BID 03/11/19 [History] Ciprofloxacin HCl [Cipro] 500 mg PO BID #14 tab 03/13/19 [Rx] Follow up Appointment(s)/Referral(s): Margaret Grant DO [Primary Care Provider] - 03/16/19 10:20 am [facility], [NON-STAFF] - Niki Roy MD [STAFF PHYSICIAN] - 03/27/19 3:30 pm (Appointment at [facility] [place] [address]) Patient Instructions/Handouts: Pneumonia (DC) Discharge Disposition: HOME SELF-CARE
== END 2019-03-13 14:00 | disposition home health service (06) | DRG 313 ==
LOC: EC 21:44 → 4SSUR 21:47
PROVIDERS: ADMIT Internal Medicine; ATTEND Internal Medicine
DX: R07.89 Other chest pain (principal); N39.0 Urinary tract infection, site not specified; N32.1 Vesicointestinal fistula; N28.1 Cyst of kidney, acquired; C61 Malignant neoplasm of prostate; E11.9 Type 2 diabetes mellitus without complications; E78.5 Hyperlipidemia, unspecified; E87.6 Hypokalemia; F32.9 Major depressive disorder, single episode, unspecified; F41.9 Anxiety disorder, unspecified; I10 Essential (primary) hypertension; I35.0 Nonrheumatic aortic (valve) stenosis; S00.83XA Contusion of other part of head, initial encounter; K58.9 Irritable bowel syndrome, unspecified; M19.90 Unspecified osteoarthritis, unspecified site; R55 Syncope and collapse; Z79.4 Long term (current) use of insulin; Z79.82 Long term (current) use of aspirin; Z79.899 Other long term (current) drug therapy; Z87.440 Personal history of urinary (tract) infections; Z85.46 Personal history of malignant neoplasm of prostate; Z87.891 Personal history of nicotine dependence; Z90.49 Acquired absence of other specified parts of digestive tract; Z90.79 Acquired absence of other genital organ(s)
CPT/HCPCS: 71046; 76705; 80053; 80061; 80074; 81001; 84145; 84484; 85025; 87040; 87086; 93005; 96365; 99285

== ENCOUNTER 2022-04-06 08:46 | Day surgery (SDC) | payer MEDICARE, BC ==
[~2022-04-06 08:46] MED LIST changes: +ALPRAZolam 0.5 MG TAB PO PRN; -ASPIRIN 325 MG TAB PO ONE; +ASPIRIN 325 MG TAB PO STA; +ATORVASTATIN 80 MG TAB PO STA; +HEPARIN SODIUM,PORCINE 10,000 UNIT in SODIUM CHLORIDE 0.9% 1,000 ML IRRIGATION PRN; +HEPARIN SODIUM,PORCINE 2,500 UNIT in SODIUM CHLORIDE 0.9% 250 ML IRRIGATION PRN; +NITROGLYCERIN SL TABS 0.4 MG TAB SUBLINGUAL PRN; -SODIUM CHLORIDE 0.9% 1,000 ML in EMPTY BAG 1 BAG IV ONE
[2022-04-06 09:19] VITALS: TEMP 98.2
[2022-04-06] MEDS ORDERED: SODIUM CHLORIDE 0.9% 1,000 ML IV ONE (09:19)
[2022-04-06 09:23] LABS: Glucose,Whole Blood 142 mg/dL (70-110)
[2022-04-06 10:05] LABS: Basophils # (A) 0.1 k/uL (0-0.2); Basophils % (A) 1 %; Eosinophils # (A) 0.2 k/uL (0-0.7); Eosinophils % (A) 3 %; HCT 46.3 % (39.0-53.0); HGB 16.1 gm/dL (13.0-17.5); Lymphocytes # (A) 1.3 k/uL (1.0-4.8); Lymphocytes % (A) 15 %; MCH 29.1 pg (25.0-35.0); MCHC 34.7 g/dL (31.0-37.0); MCV 83.9 fL (80.0-100.0); Mean Platelet Volume 9.2; Monocytes # (A) 0.6 k/uL (0-1.0); Monocytes % (A) 7 %; Neutrophils # (A) 6.3 k/uL (1.3-7.7); Neutrophils % (A) 73 %; Platelet Count 224 k/uL (150-450); RBC 5.52 m/uL (4.30-5.90); RDW 12.9 % (11.5-15.5); WBC 8.6 k/uL (3.8-10.6)
[2022-04-06 10:09] LABS: African American GFR (CKD) >90 (>60 ml/min/1.73 sqM); Anion Gap 9 mmol/L; Blood Urea Nitrogen 15 mg/dL (9-20); Calcium 9.1 mg/dL (8.4-10.2); Carbon Dioxide 28 mmol/L (22-30); Chloride 103 mmol/L (98-107); Glucose 154 mg/dL (74-99); Non-African American GFR(CKD) >90 (>60 ml/min/1.73 sqM); Potassium 3.7 mmol/L (3.5-5.1); Sodium 140 mmol/L (137-145)
[2022-04-06] MEDS ORDERED: IV FLUID CONTINUATION 900 ML IV ONE (10:12)
[2022-04-06] MEDS: BENZOCAINE SPRAY 1 CAN MUCOUS MEM ONE ×2 (10:20→10:31)
[2022-04-06] MEDS ORDERED: VERAPAMIL 2.5 MG/ML 2 ML AMP ONE (10:20)
[2022-04-06] MEDS ORDERED: fentaNYL (PF) 50 MCG/ML 2 ML AMP IV ONE (10:31)
[2022-04-06] MEDS ORDERED: MIDAZOLAM 2 MG/2 ML VIAL IV ONE ×2 (10:31→10:34)
[2022-04-06] MEDS ORDERED: LIDOCAINE 1% INJ 10MG/ML (5 ML VIAL-PF) SQ ONE (10:58)
[2022-04-06] MEDS ORDERED: VERAPAMIL SYRINGE (5 MG/10 ML) INTRAARTER ONE (10:59)
[2022-04-06] MEDS ORDERED: HEPARIN SODIUM 1,000 UN/ML (10ML VL) ONE (11:00)
[2022-04-06] MEDS ORDERED: HEPARIN SODIUM 1,000 UN/ML (10ML VL) IV ONE (11:03)
[2022-04-06] MEDS ORDERED: IOPAMIDOL-370 100ML BTL INJ ONE (11:17)
[2022-04-06] MEDS ORDERED: IOPAMIDOL-370 50ML BTL INJ ONE (11:18)
--- NOTE | 2022-04-06 11:59 | CC ---
CARDIAC CATHETERIZATION REPORT INDICATIONS: To rule out coronary artery disease in a patient with critical aortic stenosis who is to be referred to TAVR. PROCEDURE NOTE: After obtaining informed consent, left heart catheterization, coronary angiogram and aortogram were performed via the right radial artery using 3-1/2 Xuan right and left coronary catheters and a pigtail catheter. The patient received moderate conscious sedation. Total sedation time was 24 minutes. The right radial artery access was obtained using Seldinger technique, and catheters and wires were floated into the ascending aorta under fluoroscopic guidance. Patient received 5 mg of verapamil and 5000 units of heparin per protocol and a TR band was used for hemostasis. FINDINGS: 1. Hemodynamics: Left ventricular and central aortic pressure is 130/70 mm. 2. Aortogram: Aortogram was performed in left lateral position. It does not show aortic regurgitation, aneurysm or dissection. 3. Angiographic Data: a.Right Coronary Artery: Right coronary artery is a dominant vessel and is free of stenosis. b.Left Main Coronary Artery: Left main coronary artery is a normal-sized vessel and is free of significant stenosis. Divides into left anterior descending coronary artery and circumflex coronary artery both of which show mild non- obstructive CAD. c.Right coronary artery shows a 40% to 50% stenosis in the distal portion. CONCLUSIONS: A 40% to 50% stenosis involving distal right coronary artery. Normal aortogram. Critical aortic stenosis on noninvasive studies. MMODL / IJN: [id number] /
[2022-04-06 14:35] VITALS: RESP 16
[2022-04-06 14:36] VITALS: BP 146/77; PULSE 64
--- NOTE | 2022-04-06 20:23 | ECHOT ---
TRANSESOPHAGEAL ECHOCARDIOGRAM INDICATION: Aortic stenosis. PROCEDURE NOTE: After obtaining informed consent, transesophageal echocardiogram was performed in left lateral position using an Omniplane probe. Local and IV sedation were obtained. Total sedation time was 10 minutes. The patient received 3 mg of Versed, 25 mcg of fentanyl, and Xylocaine spray. FINDINGS: 1. Aortic valve appears heavily calcified with severe restriction in leaflet mobility. It is probably a bicuspid aortic valve. 2. By planimetry, the valve area is 0.4 squared cm. 3. Left atrium appears mildly enlarged. Right atrium and right ventricle seen within normal limits. Mitral valve shows mild mitral regurgitation. Tricuspid valve shows mild tricuspid regurgitation. 4. Aortic root measures within normal limits. There is no evidence of [id number] shunt by color-flow Doppler or [id number] shunt by agitated saline contrast study. Left ventricle has normal size and systolic function. CONCLUSIONS: Severe aortic stenosis involving a heavily calcified aortic valve. It is probably a bicuspid aortic valve. PLAN: The patient will undergo cardiac catheterization and will be referred for TAVR. MMODL / IJN: [id number] /
== END 2022-04-06 15:04 | disposition home or self-care (01) ==
LOC: CATHCVL 08:46
PROVIDERS: ATTEND Internal Medicine Cardiovascular Disease
DX: I25.10 Atherosclerotic heart disease of native coronary artery without angina pectoris (principal); I08.3 Combined rheumatic disorders of mitral, aortic and tricuspid valves; I70.0 Atherosclerosis of aorta; I10 Essential (primary) hypertension; E11.9 Type 2 diabetes mellitus without complications; E78.5 Hyperlipidemia, unspecified; E78.00 Pure hypercholesterolemia, unspecified
CPT/HCPCS: 93312; 93320; 93325; 93458; 93567; 80048; 85025; C1769; C1894; J2250; J2001; J3010; J1644; Q9967 ×2

== ENCOUNTER → 2022-04-14 | Outpatient (CLI) | payer MEDICARE, BC ==
[2022-04-14 09:57] LABS: Appearance,Urine Clear (Clear); Bilirubin,Urine Negative (Negative); Blood,Urine Negative (Negative); Color,Urine Light Yellow; Glucose,Urine (UA) Negative (Negative); Ketones,Urine Negative (Negative); Leukocyte Esterase,Urine Negative (Negative); Nitrite,Urine Negative (Negative); PH, Urine 7.5 (5.0-8.0); Protein,Urine Negative (Negative); Specific Gravity,Urine 1.014 (1.001-1.035); Urobilinogen,Urine <2.0 mg/dL (<2.0)
[2022-04-14 10:06] LABS: ALT 34 U/L (4-49); AST 28 U/L (17-59); African American GFR (CKD) >90 (>60 ml/min/1.73 sqM); Albumin 4.3 g/dL (3.5-5.0); Albumin/Globulin Ratio 1.3; Alkaline Phosphatase 104 U/L (38-126); Anion Gap 7 mmol/L; Blood Urea Nitrogen 13 mg/dL (9-20); Calcium 8.9 mg/dL (8.4-10.2); Carbon Dioxide 28 mmol/L (22-30); Chloride 105 mmol/L (98-107); Globulin 3.2 g/dL; Glucose 136 mg/dL (74-99); Non-African American GFR(CKD) >90 (>60 ml/min/1.73 sqM); Potassium 4.5 mmol/L (3.5-5.1); Sodium 140 mmol/L (137-145); Total Protein 7.5 g/dL (6.3-8.2)
--- NOTE | 2022-04-14 12:49 | CT ---
EXAMINATION TYPE: CT TAVR Planning DATE OF EXAM: 04/14/2022 HISTORY: 66-year-old male I35.1, TAVR CT DLP: 2362.1 mGycm Automated Exposure Control for Dose Reduction was Utilized. CONTRAST: CT scan of the chest, abdomen and pelvis is performed with IV Contrast, patient injected with 125 mL of Isovue 370. COMPARISON: Outside CT 03/11/2019 TECHNIQUE: Helical imaging obtained through the chest, abdomen and pelvis during arterial phase flaco jazmyne administration of radiographic contrast intravenously. FINDINGS: See report from [facility] regarding preprocedural planning CHEST: Lower Neck and Thyroid: Atherosclerotic calcification right carotid bifurcation. Unable to exclude a significant stenosis proximal right ICA. Lungs: Small bilateral pleural effusions with mild hazy lower lobe atelectasis. Central Airway: No significant findings Pleura: Small bilateral pleural effusions. Pulmonary Arteries: No significant findings Heart and Pericardium: Aortic valvular and mitral annular calcifications are noted. LAD coronary ashly ry calcifications and mild scattered RCA and circumflex coronary artery calcifications. No pericardia l effusion. Mild ectasia upper descending thoracic aorta at 3.3 cm. Conventional arch vessel branchin g anatomy with mild prostatic calcifications. Lymph Nodes: No significant findings Mediastinum & Esophagus: No significant findings ABDOMEN/PELVIS: Please note arterial phase of the imaging limits detailed evaluation of the solid abdominal organs. Liver: 8 mm cyst anterior mid liver. Liver is enlarged at 24.1 cm with diffuse low-attenuation. Spleen: No significant findings Kidneys: Scattered benign renal cysts measuring up to 5.4 cm on the right and 5.1 cm on the left. Adrenal Glands: No significant findings Pancreas: No significant findings Gallbladder: Cholecystectomy clips. Bowel and Mesentery: Staple line near the hepatic flexure of the colon suggesting prior resection and ileocolonic anastomosis. Additional staple line distally suggesting resection and re-anastomosis at the rectosigmoid junction. Left-sided colonic diverticulosis. No pericolonic inflammatory change. Mil d to moderate stool burden. Lymph Nodes: No significant findings Urinary Bladder: No significant findings Pelvic Organs: Prostate gland either very small or surgically absent. Other: Underlying rectus diastases with previous mesh repair. Small omental fat-containing left sided mid abdominal hernia measuring 2.3 cm wide at the margin of the mesh material. Small 3.4 cm fat-cont aining midline hernia also noted just above the level of the umbilicus. Other Lines/Tubes/Devices/Hardware: None BONES: Mild degenerative changes both hips. Facet arthropathy mid to lower lumbar spine. IMPRESSION: 1. CAD with scattered three-vessel coronary artery calcifications. 2. Atherosclerotic change at the right carotid bifurcation. Unable to exclude a significant proximal right ICA stenosis. 3. Small bilateral pleural effusions with some hazy adjacent atelectasis. 4. Hepatomegaly with hepatic steatosis. 5. Previous ventral abdominal wall mesh repair. A couple small fat containing abdominal wall hernias remain as above. Left-sided colonic diverticulosis without acute diverticulitis. Previous surgery pro ximal and distal colon.
[2022-04-14 14:56] LABS: INR 0.9 (0.90-1.11); Prothrombin Time 10.2 sec (9.9-11.9)
[2022-04-14 15:20] LABS: Basophils # (A) 0.04 X 10*3/uL (0.00-0.10); Basophils % (A) 0.4 %; Eosinophils # (A) 0.16 X 10*3/uL (0.04-0.35); Eosinophils % (A) 1.8 %; HCT 46.1 % (39.6-50.0); HGB 14.7 g/dL (13.0-17.0); Immature Grans, Automated 0.3 %; Lymphocytes # (A) 0.92 X 10*3/uL (0.90-5.00); Lymphocytes % (A) 10.3 %; MCH 27.5 pg (27.0-32.0); MCHC 31.9 g/dL (32.0-37.0); MCV 86.2 fL (80.0-97.0); Mean Platelet Volume 12.2 fL (9.5-12.2); Monocytes # (A) 0.64 X 10*3/uL (0.20-1.00); Monocytes % (A) 7.2 %; NRBC Per 100 WBC 0 /100 WBCS (0.0-0.0); Neutrophils # (A) 7.12 X 10*3/uL (1.80-7.70); Platelet Count 207 X 10*3/uL (140-440); RBC 5.35 X 10*6/uL (4.40-5.60); RDW 14.2 % (11.5-14.5); WBC 8.91 X 10*3/uL (4.50-10.00)
--- NOTE | 2022-04-14 15:52 | CA ---
Transthoracic Echo Report Name: Jw Gonzales Age: 66 Gender: M : 1955 Exam Date: 04/14/2022 10:54 Exam Location: [place] [facility] Ht (in): 72 Wt (lb): 225 Ordering Physician: Adam Escoto MD Attending/Referring Phys: [id number], Jevon Filter Tip Inspector Agustina Johnson, [facility] Procedure CPT: Indications: I35.1 Cardiac Hx: PT IS PRE TAVR. Technical Quality: Contrast 1: Total Dose (mL): Contrast 2: Total Dose (mL): MEASUREMENTS (Male / Female) Normal Values 2D ECHO LV Diastolic Diameter PLAX 7.1 cm 4.2 - 5.9 / 3.9 - 5.3 cm LV Systolic Diameter PLAX 5.6 cm IVS Diastolic Thickness 1.5 cm 0.6 - 1.0 / 0.6 - 0.9 cm LVPW Diastolic Thickness 1.1 cm 0.6 - 1.0 / 0.6 - 0.9 cm LV Relative Wall Thickness 0.4 LA Volume 121.8 cm??? 18 - 58 / 22 - 52 cm??? M-MODE Aortic Root Diameter MM 3.5 cm LA Systolic Diameter MM 3.9 cm LA Ao Ratio MM 1.1 MV E Point Septal Separation 1.5 cm AV Cusp Separation MM 1.3 cm DOPPLER AV Peak Velocity 467.8 cm/s AV Peak Gradient 140.4 mmHg AV Mean Velocity 277.3 cm/s AV Mean Gradient 51.2 mmHg AV Velocity Time Integral 81.7 cm LVOT Peak Velocity 102.5 cm/s LVOT Peak Gradient 4.2 mmHg MV Area PHT 2.8 cm??? Mitral E Point Velocity 99.3 cm/s Mitral A Point Velocity 97.3 cm/s Mitral E to A Ratio 1.0 MV Deceleration Time 268.6 ms MV E' Velocity 4.0 cm/s Mitral E to MV E' Ratio 24.6 TR Peak Velocity 301.4 cm/s TR Peak Gradient 36.3 mmHg Right Ventricular Systolic Press 38.9 mmHg FINDINGS Left Ventricle Moderately increased septal wall thickness. Moderately increased left ventricular diastolic diameter. Left ventricular cavity size normal. Left ventricular ejection fraction is estimated at 55 %. Right Ventricle Normal right ventricular size and function. Mild pulmonary hypertension. Right ventricular systolic pressure estimated at 39 mm hg. Right Atrium Normal right atrial size. Left Atrium Severely increased left atrial volume. Mildly increased left atrial area. Mitral Valve Mitral annular calcification. Mild mitral regurgitation. Aortic Valve Possible Bicuspid.severe aortic stenosis with a peak velocity of 5 m/s, peak gradient 140.4mmHg, mean gradient 86.52 mmHg,. Tricuspid Valve Structurally normal tricuspid valve. Mild tricuspid regurgitation. Pulmonic Valve Structurally normal pulmonic valve. Pericardium Normal pericardium. Aorta Normal size aortic root and proximal ascending aorta. CONCLUSIONS LVH with ejection fraction of 50-55% Aortic stenosis, calcific, severe Previewed by: Dr. Shaw Gregory MD (Electronically Signed) Final Date: 14 April 2022 15:51
[2022-04-14 18:06] LABS: Chol/HDL Ratio 4.48 Ratio; LDL Cholesterol,Calculated 126.3 mg/dL (0.0-131.0); Magnesium 2.2 mg/dL (1.5-2.4)
[2022-04-14 18:08] LABS: Hepatitis A Antibody IgM Nonreactive (Nonreactive); Hepatitis B Core IgM Nonreactive (Nonreactive); Hepatitis B Surface Antigen Nonreactive (Nonreactive); Hepatitis C IgG Antibody Nonreactive (Nonreactive)
== END | disposition home or self-care (01) ==
LOC: LABWHC1 09:03
PROVIDERS: ATTEND Thoracic Surgery (Cardiothoracic Vascular Surgery)
DX: Z01.818 Encounter for other preprocedural examination (principal); I35.1 Nonrheumatic aortic (valve) insufficiency; E87.8 Other disorders of electrolyte and fluid balance, not elsewhere classified; Z79.899 Other long term (current) drug therapy; R58 Hemorrhage, not elsewhere classified; R35.0 Frequency of micturition; Z79.01 Long term (current) use of anticoagulants; E11.9 Type 2 diabetes mellitus without complications; N28.9 Disorder of kidney and ureter, unspecified; E78.5 Hyperlipidemia, unspecified; E07.9 Disorder of thyroid, unspecified
CPT/HCPCS: 94150; 93306; 80061; 80053; 80074; 84443; 83735; 85025; 85610; 81003; 87086; 71275; 36415 ×2; 74174; Q9967

== ENCOUNTER → 2022-04-27 | Outpatient (CLI) | payer MEDICARE, BC ==
[2022-04-27 17:30] LABS: ALT 25 U/L (4-49); AST 23 U/L (17-59); African American GFR (CKD) >90 (>60 ml/min/1.73 sqM); Albumin 4.2 g/dL (3.5-5.0); Albumin/Globulin Ratio 1.4; Alkaline Phosphatase 93 U/L (38-126); Anion Gap 7 mmol/L; Blood Urea Nitrogen 14 mg/dL (9-20); Calcium 9.2 mg/dL (8.4-10.2); Carbon Dioxide 31 mmol/L (22-30); Chloride 103 mmol/L (98-107); Globulin 3.1 g/dL; Glucose 104 mg/dL (74-99); Non-African American GFR(CKD) >90 (>60 ml/min/1.73 sqM); Potassium 4.2 mmol/L (3.5-5.1); Sodium 141 mmol/L (137-145); Total Bilirubin 0.7 mg/dL (0.2-1.3); Total Protein 7.3 g/dL (6.3-8.2)
== END | disposition home or self-care (01) ==
LOC: LABWHC1 16:13
PROVIDERS: ATTEND Nurse Practitioner Acute Care
DX: Z01.812 Encounter for preprocedural laboratory examination (principal); I49.3 Ventricular premature depolarization
CPT/HCPCS: 36415; 80053; 85730; 86850; 86900; 86901

== ENCOUNTER 2022-05-06 08:07 | Inpatient (IN) | payer MEDICARE, BC ==
[~2022-05-06 08:07] MED LIST changes: -ALPRAZolam 0.25 MG TAB PO PRN; -ALPRAZolam 0.5 MG TAB PO PRN; +ASPIRIN 325 MG TAB PO ONE; -ASPIRIN 325 MG TAB PO STA; +ATORVASTATIN 10 MG TAB PO ONE; -ATORVASTATIN 80 MG TAB PO STA; +CLEVIDIPINE BUTYRATE 25 MG in EMPTY BAG 1 BAG IV PRN; +CLOPIDOGREL 75 MG TAB PO ONE; +ELECTROLYTE-A SOLUTION 1,000 ML with POTASSIUM CHLORIDE 100 MEQ, MAGNESIUM SULFATE 16 M... IV PRN; -HEPARIN SODIUM,PORCINE 10,000 UNIT in SODIUM CHLORIDE 0.9% 1,000 ML IRRIGATION PRN; -HEPARIN SODIUM,PORCINE 2,500 UNIT in SODIUM CHLORIDE 0.9% 250 ML IRRIGATION PRN; +INSULIN REGULAR 100 UNIT in SODIUM CHLORIDE 0.9% 100 ML IV PRN; +LACTATED RINGERS 1,000 ML IV SCH; +METOPROLOL TARTRATE 25 MG TAB PO ONE; -NITROGLYCERIN SL TABS 0.4 MG TAB SUBLINGUAL PRN; +NITROGLYCERIN-D5W PMX 25 MG/250 ML BTL IV PRN; +PROTAMINE SULFATE 250 MG in EMPTY BAG 1 BAG IV PRN; +SODIUM CHLORIDE 0.9% 500 ML 500 ML INTRAARTER PRN; +TRANEXAMIC ACID 2,000 MG in SODIUM CHLORIDE 0.9% 80 ML IV PRN
[2022-05-06 08:36] LABS: Glucose,Whole Blood 136 mg/dL (70-110)
[2022-05-06] MEDS ORDERED: SODIUM CHLORIDE 0.9% 1,000 ML IV ONE (08:41)
[2022-05-06 09:05] LABS: Basophils % (A) 0 %; Eosinophils # (A) 0.2 k/uL (0-0.7); Eosinophils % (A) 2 %; HCT 44.1 % (39.0-53.0); HGB 14.8 gm/dL (13.0-17.5); Lymphocytes # (A) 0.8 k/uL (1.0-4.8); Lymphocytes % (A) 11 %; MCH 28.9 pg (25.0-35.0); MCHC 33.7 g/dL (31.0-37.0); MCV 85.7 fL (80.0-100.0); Mean Platelet Volume 9.4; Monocytes # (A) 0.5 k/uL (0-1.0); Monocytes % (A) 6 %; Neutrophils # (A) 6.2 k/uL (1.3-7.7); Neutrophils % (A) 79 %; Platelet Count 198 k/uL (150-450); RBC 5.14 m/uL (4.30-5.90); RDW 13.7 % (11.5-15.5); WBC 7.8 k/uL (3.8-10.6)
[2022-05-06] MEDS ORDERED: HEPARIN SODIUM,PORCINE 10,000 UNIT/ML 1 ML VIAL ONE (10:21)
[2022-05-06] MEDS ORDERED: DEXAMETHASONE SOD PHOS (MDV) 100 MG/10 ML VIAL ONE (10:21)
[2022-05-06] MEDS ORDERED: fentaNYL (PF) 50 MCG/ML 2 ML AMP ONE (10:21)
[2022-05-06] MEDS ORDERED: SUCCINYLCHOLINE CHLORIDE 200 MG/10 ML VIAL IV ONE (10:21)
[2022-05-06] MEDS ORDERED: PROPOFOL 10 MG/ML 20 ML VIAL IV ONE (10:21)
[2022-05-06] MEDS ORDERED: LIDOCAINE 2% INJ 20 MG/ML (2 ML VIAL) ONE (10:21)
[2022-05-06] MEDS ORDERED: PROTAMINE SULFATE 10 MG/ML 5 ML VIAL IV ONE (10:21)
[2022-05-06] MEDS ORDERED: ceFAZolin 1,000 MG VIAL ONE (10:21)
[2022-05-06] MEDS ORDERED: GLYCOPYRROLATE 0.2 MG/ML 2 ML VIAL ONE (10:21)
[2022-05-06] MEDS ORDERED: ONDANSETRON 4 MG/2 ML VIAL ONE (10:21)
[2022-05-06] MEDS ORDERED: ROCURONIUM 10 MG/ML (5 ML VIAL) IV ONE (10:21)
[2022-05-06] MEDS ORDERED: SODIUM CHLORIDE 0.9% 100 ML BAG ONE (10:21)
[2022-05-06] MEDS ORDERED: MIDAZOLAM 2 MG/2 ML VIAL ONE (10:21)
[2022-05-06] MEDS ORDERED: NEOSTIGMINE 1 MG/ML 10 ML VIAL ONE (10:21)
[2022-05-06] MEDS ORDERED: hydrALAZINE HCL 20 MG/ML 1 ML VIAL ONE (10:21)
[2022-05-06] MEDS ORDERED: LACTATED RINGERS 1,000 ML IV ONE (10:25)
[2022-05-06] MEDS ORDERED: IOPAMIDOL-370 100ML BTL INJ ONE (11:48)
[2022-05-06] MEDS ORDERED: IOPAMIDOL-370 50ML BTL INJ ONE (11:49)
--- NOTE | 2022-05-06 12:11 | P.PCN ---
Date of Procedure: 05/06/22 Operative Findings: TRANSCATHETER AORITC VALVE REPLACEMENT OPERATIVE REPORT PROCEDURE PERFORMED: 1. Percutaneous Aortic Valve Implantation using a 34 mm Core-Valve Evolut-Pro Plus. 2. Transesophageal echocardiography (performed by anesthesia) 3. Ultrasound guided access and repair of right femoral artery access site by Perclose closure device. 4. Placement of temporary pacemaker wire. 5. Aortic root angiography INDICATIONS: 1. 66 year-old with a history of severe symptomatic aortic valve stenosis. 2. Symptoms of shortness of breath consistent was NYHA class II PERFORMING PHYSICIANS: 1. Gary Olivo MD Interventional Cardiology. 2. Adam Escoto MD, Cardiothoracic Surgeon. SEDATION: General anesthesia provided by anesthesia, see separate note APPROACH: Bilateral femoral artery via percutaneous approach PROCEDURE DESCRIPTION: The patient was discussed at valve clinic with multidisciplinary approach with cardiothoracic surgeon as well as truck driver heavy and thought better treated with TAVR. Risks, benefits, and alternatives of the procedure had been explained to the patient who understood the risks and agreed to proceed. After consents were obtained, patient was brought to the transcatheter aortic valve implantation room in the cardiac track repair laborer and general anesthesia was provided by the anesthesiologist (see separate report). Once full body sterile prep was performed, right subclavian venous access was obtained and a temporary pacemaker was screwed in, performed by Dr. Escoto. Pacing threshholds were checked and deemed appropriate. Next the left femoral artery waw accessed using a modified Seldinger technique, ultrasound guidance and micropuncture technique. A 6 [place] Rabi sheath was placed in the left femoral artery. Next, a 6-[place] pigtail catheter was advanced into the aorta and positioned in the aortic root, aortic root angiography was performed to determine optimal deployment angle. The right femoral artery was accessed using modified Seldinger technique, micropuncture technique and under direct ultrasound guidance. Femoral angiogram was done showing access in the common femoral artery and a 6Fr sheath was placed. Next preclose technique was performed using two Perclose. Next a 0.035 Lunderquist wire was placed in the Aorta via a pigtail catheter. Over that the Lunderquist wirea 18 Fr Dryseal sheath was placed. Next a 6F- AL2 catheter was advanced over a wire to the aortic root. A straight wire was advanced through the catheter and used to cross the severely stenotic valve. The AL2 was then exchanged for a 6Fr pigtail catheter and pressure measurements were obtained. The 0.035 Lunderquist wire was then positioned in the apex. Next predilatation was performed using 21 mm balloon. Next a 34 mm Corevalve Evolut-Pro Plus was advanced. The valve was then positioned across the aortic valve and confirmed with aortic root angiography. [The valve was initially partially deployed however needed repositioning and therefore was recaptured.] The valve was then deployed in proper position using slow deployment and with rapid pacing in conjuncture with aortic root angiography and CHANDU. The delivery system was withdrawn back into the arch and an aortic root injection in conjunction with CHANDU demonstrated moderate paravalvular leak. We decided to post-dilate so we did that using 24 mm balloon. There was mild para valvular leak after postdilated. There was no evidence of any other significant abnormalities. The preclose Perclose was then deployed in the right femoral artery and hemostasis was achieved. Femoral angiogram on the right was performed that showed no contrast leak. The left femoral angiogram demonstrated an arteriotomy in the common femoral artery and this was repaired using a 6F angioseal device with complete hemostasis. The temporary venous pacemaker was sutured in place. The patient was then transported to the ICU in hemodynamically stable condition, requiring no pressor support. COMPLICATIONS: None CONCLUSION: 1. Implantaion of 34 mm Core-Valve Evolut-Pro Plus transcatheter aortic valve via right femoral approach under CHANDU and fluoro guidance with mild ilana-valvular aortic regurgitation. 2. Placement of temporary pacemaker wire 3. Aortic Root Aortogram. RECOMMENDATIONS: The patient will be monitored in the ICU for hemodynamic and electrical stability. Patient will be on aspirin and Plavix.
[2022-05-06 12:14] LABS: Glucose,Whole Blood 134 mg/dL (70-110)
[2022-05-06] MEDS ORDERED: ACETAMINOPHEN TAB 500 MG TAB PO PRN (12:31)
[2022-05-06] MEDS ORDERED: IPRATROPIUM-ALBUTEROL 3 ML NEB INHALATION PRN (12:31)
[2022-05-06] MEDS ORDERED: ONDANSETRON 4 MG/2 ML VIAL IVP PRN (12:31)
[2022-05-06] MEDS ORDERED: DEXTROSE 50% SYRINGE 50 ML IVP PRN ×2 (12:31)
[2022-05-06] MEDS ORDERED: SODIUM CHLORIDE 0.9% 1,000 ML IV SCH (12:31)
[2022-05-06] MEDS ORDERED: DICYCLOMINE 10 MG CAP PO PRN (12:31)
[2022-05-06] MEDS ORDERED: ALPRAZolam 0.25 MG TAB PO PRN (12:31)
--- NOTE | 2022-05-06 12:42 | P.OP ---
Date of Procedure: 05/06/22 Preoperative Diagnosis: Calcific aortic stenosis Postoperative Diagnosis: Same Procedure(s) Performed: Right transfemoral percutaneous transcatheter aortic valve replacement with 34 mm Medtronic Fx CoreValve Implants: 34 mm Medtronic Fx CoreValve Anesthesia: WALLACE Surgeon: Adam Escoto (Cardiovascular surgeon ) Automatic Transmission Mechanic #1: Gary Olivo (sole rounder) Estimated Blood Loss (ml): 10 IV fluids (ml): 1,000 Urine output (ml): 0 Pathology: none sent Condition: stable Disposition: ICU Indications for Procedure: 66-year-old male with symptomatic severe aortic stenosis. He is felt to be appropriate candidate for either surgical or transcatheter aortic valve replacement. Patient was offered both options and opted for transcatheter approach. Operative Findings: Tricuspid calcific aortic stenosis with extremely high [place] gradient. After initial deployment, there was moderate paravalvular leak. Post-balloon valvuloplasty was performed. Final CHANDU demonstrated only trivial paravalvular leak. Valve implant levels were 3 on the right and 4 on the left. Description of Procedure: The patient was brought to the catheterization laboratory and placed supine on the table. Gen. anesthesia was induced. CHANDU probe was placed. Anterior torso and bilateral groins were sterilely prepped and draped. Right subclavian venous access was obtained and guidewire threaded into the right atrium. 6-Vincentian peel-away sheath was placed over the guidewire and through this a screw-in Medtronic ventricular lead was advanced into the heart and on into the apex of the right ventricle. It was screwed inherent good thresholds were obtained. It was secured at the skin with 2-0 silk suture ligatures. Bilateral femoral arterial access was obtained by Dr. Estrada using ultrasound. On the right a 6- Vincentian sheath was placed. On the left long 7-Vincentian sheath was placed and advanced into the descending thoracic aorta. Through this a pigtail catheter was advanced into the non-coronary sinus of Valsalva. 2 Perclose devices were deployed in the right common femoral artery. An 8-Vincentian sheath was placed through them and stiff wire advanced ascending thoracic aorta. 8-Vincentian sheath was exchanged for a 14-Vincentian sheath. Patient was systemically heparinized and ACT was maintained greater than 250 during the procedure. Aortic valve was crossed from the right femoral approach and a pigtail catheter positioned in the apex of the left ventricle. Transvalvular gradients were measured. Lunderquist wire was placed in the apex of the ventricle. Was decided to predilate. 24- Vincentian triple-lumen was advanced over the wire and across the valve and aortic balloon valvuloplasty performed under rapid ventricular pacing. This proceeded uneventfully. A 34 mm CoreValve had been loaded on the back table and was brought up onto the field. His checked under fluoroscopy. 14-Vincentian sheath was exchanged for the CoreValve delivery system and it was advanced over the Lunderquist wire and across the aortic valve. Was appropriately positioned under fluoroscopy with angiography and deployed under rapid ventricular pacing. Deployment proceeded well with level of 3 on the right and 4 on the left. Valve deployment system was pulled back and exchanged for the 14-Vincentian sheath over the Lunderquist wire. CHANDU demonstrated moderate aortic insufficiency which persisted over the first 10 minutes post deployment. Was decided to post- dilate. A 28 Z-Med balloon was prepped on the back table and brought up onto the field. The valve was recrossed with a pigtail catheter and the Lunderquist wire repositioned in the apex of the ventricle. Balloon valvuloplasty of the Medtronic or valve was performed with the 28 Z-Med balloon under rapid ventricular pacing. Following this there was only trivial paravalvular leak. Double-lumen Lunderquist wire were pulled out and the 14-Vincentian sheath removed and the 2 Perclose devices tightened. Good hemostasis was obtained. Heparin was reversed with protamine. 8-Vincentian Angio-Seal was used to seal the left femoral artery and the patient transferred to ICU extubated in stable condition.
--- NOTE | 2022-05-06 13:40 | P.ANPRN ---
Procedure Note - Anesthesia - CHANDU Intraop Pre Bypass CHANDU Intraop - Anesthesia Indication: Trans-catheter aortic valve replacement Date of Procedure: 05/06/22 Pre-operative Diagnosis: Severe aortic stenosis Post-operative Diagnosis: Severe aortic stenosis Surgeon: Adam Escoto Left Ventricle: Ejection fraction of 55-60%,no regional wall motion abnormalities noted. Ejection Fraction: Normal Regional Wall Motion Abnormalities: None Left Ventricle Hypertrophy: Yes R. Ventricle Function: Normal Aortic Valve: Aortic valve is calcified. One of the leaflet is fused looking like a bicuspid. Aortic valve area is 0.6 cm with peak gradient of 75 mmHg and mean gradient of 50 mmHg. Aortic Stenosis: Severe Aortic Regurgitation: None Mitral Stenosis: None Mitral Regurgitation: Mild Tricuspid Regurgitation: Trace Pulmonic Stenosis: None Pulmonic Regurgitation: None R. Atrial Dilation: No R. Atrial PFO: No L. Atrial Dilation: Yes Aortic Dissection: No Aortic Calcification: None Plural Effusion: None - CHANDU Intraop Post Bypass CHANDU Intraop Post Bypass Procedure Performed: Transcatheter aortic valve replacement Left Ventricle: Fraction 55-60%, no regional wall motion abnormalities noted. Ejection Fraction: Normal R. Ventricle Function: Normal Aortic Valve: Prosthetic aortic valve in situ seated in aortic position. Peak gradient across the valve is 12 mmHg and mean gradient is 6 mm of mercury. Mild paravalvular regurgitation seen which appears not to be hemodynamically significant. Mitral Valve: Unchanged Tricuspid: Unchanged Pulmonic: Unchanged Aortic Dissection: No
[2022-05-06] MEDS: INSULIN ASPART (NovoLOG) 100 UNIT/ML VIAL SQ SCH ×3 (13:43→20:43)
[2022-05-06 13:45] LABS: ALT 28 U/L (4-49); AST 27 U/L (17-59); African American GFR (CKD) >90 (>60 ml/min/1.73 sqM); Albumin 3.8 g/dL (3.5-5.0); Alkaline Phosphatase 89 U/L (38-126); Anion Gap 8 mmol/L; Blood Urea Nitrogen 9 mg/dL (9-20); Calcium 8.6 mg/dL (8.4-10.2); Carbon Dioxide 23 mmol/L (22-30); Chloride 107 mmol/L (98-107); Glucose 137 mg/dL (74-99); Non-African American GFR(CKD) >90 (>60 ml/min/1.73 sqM); Potassium 3.9 mmol/L (3.5-5.1); Sodium 138 mmol/L (137-145); Total Bilirubin 0.8 mg/dL (0.2-1.3); Total Protein 6.6 g/dL (6.3-8.2)
[2022-05-06 13:53] LABS: Basophils % (A) 0 %; Eosinophils # (A) 0.1 k/uL (0-0.7); Eosinophils % (A) 1 %; HCT 42.6 % (39.0-53.0); HGB 14.5 gm/dL (13.0-17.5); Lymphocytes # (A) 0.5 k/uL (1.0-4.8); Lymphocytes % (A) 5 %; MCH 29.5 pg (25.0-35.0); MCHC 34.1 g/dL (31.0-37.0); MCV 86.6 fL (80.0-100.0); Mean Platelet Volume 9.8; Monocytes # (A) 0.2 k/uL (0-1.0); Monocytes % (A) 3 %; Neutrophils # (A) 8.3 k/uL (1.3-7.7); Neutrophils % (A) 91 %; Platelet Count 143 k/uL (150-450); Prothrombin Time 10.9 sec (9.0-12.0); RBC 4.92 m/uL (4.30-5.90); RDW 14.1 % (11.5-15.5); WBC 9.2 k/uL (3.8-10.6)
[2022-05-06 14:08] VITALS: BMI 31.6
--- NOTE | 2022-05-06 15:28 | XR ---
EXAMINATION TYPE: XR chest 1V portable DATE OF EXAM: 05/06/2022 COMPARISON: 03/12/2019 INDICATION: Postoperative Cardiac surgery TECHNIQUE: Single frontal view of the chest is obtained. FINDINGS: The heart size is normal. The pulmonary vasculature is normal. Some mild atelectasis may be present at the left lung base. Cardiac valve surgery is evident. External leads appear to be present bilaterally IMPRESSION: 1. Left basilar atelectasis.
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
[2022-05-06 17:18] LABS: Glucose,Whole Blood 159 mg/dL (70-110)
[2022-05-06] MEDS ORDERED: Potassium Replacement Protocol 1 EACH MISC MISCELLANE PRN (17:45)
[2022-05-06] MEDS ORDERED: POTASSIUM CHLORIDE ER 20 MEQ TAB.ER PO SCH (18:00)
[2022-05-06] MEDS ORDERED: TAMSULOSIN 0.4 MG CAP.ER.24H PO SCH (18:30)
[2022-05-06 20:30] LABS: Glucose,Whole Blood 141 mg/dL (70-110)
[2022-05-06] MEDS: INSULIN DETEMIR (LEVEMIR) 100 UNIT/ML SYR SQ SCH (20:44)
[2022-05-06] MEDS ORDERED: ATORVASTATIN 80 MG TAB PO SCH (21:00)
[2022-05-06] MEDS: HEPARIN SODIUM,PORCINE/PF 5,000 UNIT/0.5 ML SYRINGE SQ SCH (23:43)
[2022-05-07 06:25] LABS: Basophils % (A) 0 %; Eosinophils # (A) 0.1 k/uL (0-0.7); Eosinophils % (A) 1 %; HCT 40.8 % (39.0-53.0); HGB 13.6 gm/dL (13.0-17.5); Lymphocytes # (A) 1.1 k/uL (1.0-4.8); Lymphocytes % (A) 14 %; MCH 28.6 pg (25.0-35.0); MCHC 33.4 g/dL (31.0-37.0); MCV 85.7 fL (80.0-100.0); Mean Platelet Volume 9.7; Monocytes # (A) 0.5 k/uL (0-1.0); Monocytes % (A) 7 %; Neutrophils % (A) 77 %; Platelet Count 166 k/uL (150-450); RBC 4.76 m/uL (4.30-5.90); RDW 13.9 % (11.5-15.5); WBC 7.9 k/uL (3.8-10.6)
[2022-05-07 06:27] LABS: Ionized Calcium 5.1 mg/dL (4.5-5.3)
[2022-05-07 06:46] LABS: Glucose,Whole Blood 147 mg/dL (70-110)
[2022-05-07 06:48] LABS: ALT 23 U/L (4-49); AST 23 U/L (17-59); African American GFR (CKD) >90 (>60 ml/min/1.73 sqM); Albumin 3.7 g/dL (3.5-5.0); Alkaline Phosphatase 82 U/L (38-126); Anion Gap 5 mmol/L; Blood Urea Nitrogen 13 mg/dL (9-20); Calcium 8.5 mg/dL (8.4-10.2); Carbon Dioxide 24 mmol/L (22-30); Chloride 108 mmol/L (98-107); Glucose 116 mg/dL (74-99); Magnesium 2.1 mg/dL (1.6-2.3); Non-African American GFR(CKD) >90 (>60 ml/min/1.73 sqM); Potassium 3.9 mmol/L (3.5-5.1); Sodium 137 mmol/L (137-145); Total Bilirubin 0.8 mg/dL (0.2-1.3); Total Protein 6.5 g/dL (6.3-8.2)
[2022-05-07] MEDS: INSULIN ASPART (NovoLOG) 100 UNIT/ML VIAL SQ SCH ×2 (06:54→11:46)
[2022-05-07] MEDS ORDERED: PANTOPRAZOLE 40 MG TABLET PO SCH (07:30)
[2022-05-07] MEDS ORDERED: POTASSIUM CHLORIDE ER 20 MEQ TAB.ER PO SCH (08:00)
--- NOTE | 2022-05-07 08:15 | XR ---
EXAMINATION TYPE: XR chest 1V portable DATE OF EXAM: 05/07/2022 5:13 AM COMPARISON: Chest radiographs from TECHNIQUE: XR chest 1V portable Portable AP radiograph of the chest. CLINICAL INDICATION:Male, 66 years old with history of Post Operative Cardiac Surgery; FINDINGS: Lungs/Pleura: Low lung volumes are present. There is no evidence of pleural effusion, focal consolida tion, or pneumothorax. Pulmonary vascularity: Unremarkable. Heart/mediastinum: Cardiomediastinal silhouette is enlarged and stable. Post valve repair changes. C ardiac conduction leads projects over the inferior mediastinum. Musculoskeletal: No acute osseous pathology. IMPRESSION: Low lung volumes with a generalized hazy appearance which could represent atelectasis versus pulmonar y edema correlate with serum BNP.
[2022-05-07] MEDS: INSULIN DETEMIR (LEVEMIR) 100 UNIT/ML SYR SQ SCH (08:47)
[2022-05-07] MEDS: HEPARIN SODIUM,PORCINE/PF 5,000 UNIT/0.5 ML SYRINGE SQ SCH (08:47)
[2022-05-07] MEDS ORDERED: VALSARTAN 160 MG TAB PO SCH (09:00)
[2022-05-07] MEDS ORDERED: buPROPion XL 300 MG TAB.ER.24H PO SCH (09:00)
[2022-05-07] MEDS ORDERED: VIT A,C & E-LUTEIN-MINERALS 1 EACH TAB PO SCH (09:00)
[2022-05-07] MEDS ORDERED: MAGNESIUM HYDROXIDE 2,400 MG/10 ML CUP PO PRN (09:00)
[2022-05-07] MEDS ORDERED: hydroCHLOROthiazide 25 MG TAB PO SCH (09:00)
[2022-05-07] MEDS ORDERED: CLOPIDOGREL 75 MG TAB PO SCH (09:00)
[2022-05-07] MEDS ORDERED: METOPROLOL SUCCINATE (ER) 100 MG TAB.ER.24H PO SCH (09:00)
[2022-05-07] MEDS ORDERED: NON FORMULARY DRUG (Valsartan/Hydrochlorothiazide [Valsartan-Hctz 160-25 Mg Tab] 1 EACH Ta PO SCH (09:00)
[2022-05-07] MEDS ORDERED: MULTIVITAMINS, THERA 1 EACH TAB PO SCH (09:00)
[2022-05-07] MEDS ORDERED: bisacodyL 10 MG SUPP RECTAL PRN (09:00)
[2022-05-07] MEDS ORDERED: ASPIRIN 81 MG PO SCH (09:00)
[2022-05-07 11:47] LABS: Glucose,Whole Blood 121 mg/dL (70-110)
[2022-05-07 12:02] VITALS: BP 159/76; PULSE 64; RESP 13; TEMP 98.3
--- NOTE | 2022-05-07 12:02 | P.PN ---
Subjective Progress Note Date: 05/07/22 This is a pleasant 66-year-old male patient with a known history of diabetes mellitus, hypertension, hyperlipidemia, depression, prostate cancer status post radiation with subsequent complications regarding a colo-vesiclar fistula and subsequent repair with muscle flap from the left thigh. He has a colostomy with subsequent reversal. He had developed an incisional hernia and was requiring preop clearance from cardiology. He was found to have severe aortic stenosis and was referred to Dr. Escoto for the same. He was brought in today electively for a right trans-femoral percutaneous transcatheter aortic valve replacement utilizing a 34 mm Medtronic Fx core valve. He is seen today postoperatively in the intensive care unit. He is resting flat in bed. Awake and alert in no acute distress. He denies any worsening shortness of breath, cough or congestion. He is requiring 5 L high flow nasal cannula to maintain O2 saturations in the 90s. Vital signs stable. Bilateral groin sites are clean and dry. He is currently on lactated Ringer's at 50 MLS per hour. Heparin for DVT prophylaxis. The patient is seen today 05/07/2022 in follow-up in the intensive care unit. He is currently sitting up in a chair at the bedside. Awake and alert in no acute distress. He is maintaining good O2 saturations in the 90s on room air. No IV fluids. Postoperative day #1 of his TAVR procedure. Follow-up chest x- ray reveals low lung volumes was generalized haziness. Suspect atelectasis. Possible fluid volume overload. White count 7.9. Hemoglobin 13.6. Sodium 137. Potassium 3.9. BUN 13. Creatinine 0.71 glucose 116. Follow-up echocardiogram pending. He is continued on DuoNeb inhalations. Heparin for DVT prophylaxis. Objective - Vital Signs Vital signs: Vital Signs Temp 98.0 F 05/07/22 08:00 Pulse 62 05/07/22 11:00 Resp 15 05/07/22 11:00 BP 148/61 05/07/22 11:00 Pulse Ox 94 L 05/07/22 11:00 FiO2 Intake & Output 05/06/22 05/07/22 05/07/22 18:59 06:59 18:59 Intake Total 1450 600 100 Output Total 450 325 0 Balance 1000 275 100 Weight 103 kg 108.9 kg Intake: IV 1200 50 ceFAZolin 2 gm In Sodium 50 Chloride 0.9% 50 ml @ 100 mls/hr IVPB Q8HR MELISSA Rx# :[id number] Intake, IV Titration 250 600 50 Amount Sodium Chloride 0.9% 1, 250 600 50 000 ml @ 50 mls/hr IV . Q20H MELISSA Rx#:[id number] Output: Urine 450 325 0 Other: Voiding Method Urinal Urinal # Voids 1 1 ABP, PAP, CO, CI - Last Documented Arterial Blood Pressure 127/59 - Exam GENERAL EXAM: Alert, pleasant 66-year-old male, on room air, up in a chair at the bedside, comfortable in no apparent distress. HEAD: Normocephalic. EYES: Normal reaction of pupils, equal size. NOSE: Clear with pink turbinates. THROAT: No erythema or exudates. NECK: No masses, no JVD. CHEST: No chest wall deformity. LUNGS: Equal air entry with no crackles, wheeze, rhonchi or dullness. CVS: S1 and S2 normal with soft audible murmur, regular rhythm. ABDOMEN: No hepatosplenomegaly, normal bowel sounds, no guarding or rigidity. SPINE: No scoliosis or deformity SKIN: No rashes CENTRAL NERVOUS SYSTEM: No focal deficits, tone is normal in all 4 extremities. EXTREMITIES: Bilateral groin dressing is dry and intact. There is no peripheral edema. No clubbing, no cyanosis. Peripheral pulses are intact. - Labs CBC & Chem 7: 05/07/22 05:55 05/07/22 05:55 Labs: Abnormal Lab Results - Last 24 Hours (Table) 05/06/22 05/06/22 05/06/22 Range/Units 12:12 13:19 13:19 Plt Count 143 L (150-450) k/uL Neutrophils # 8.3 H (1.3-7.7) k/uL Lymphocytes # 0.5 L (1.0-4.8) k/uL Chloride (98-107) mmol/L Creatinine 0.60 L (0.66-1.25) mg/dL Glucose 137 H (74-99) mg/dL POC Glucose (mg/dL) 134 H (70-110) mg/dL 05/06/22 05/06/22 05/07/22 Range/Units 17:17 20:29 05:55 Plt Count (150-450) k/uL Neutrophils # (1.3-7.7) k/uL Lymphocytes # (1.0-4.8) k/uL Chloride 108 H (98-107) mmol/L Creatinine (0.66-1.25) mg/dL Glucose 116 H (74-99) mg/dL POC Glucose (mg/dL) 159 H 141 H (70-110) mg/dL 05/07/22 05/07/22 Range/Units 06:45 11:45 Plt Count (150-450) k/uL Neutrophils # (1.3-7.7) k/uL Lymphocytes # (1.0-4.8) k/uL Chloride (98-107) mmol/L Creatinine (0.66-1.25) mg/dL Glucose (74-99) mg/dL POC Glucose (mg/dL) 147 H 121 H (70-110) mg/dL Assessment and Plan Assessment: Symptomatic severe aortic stenosis status post right transfemoral percutaneous transcatheter aortic valve replacement with 34 mm Medtronic Fx CoreValve. Postoperative day #1 History of prostate cancer status post radiation treated at the [facility] History of colovesicular fistula status post colostomy and subsequent reversal History of incisional hernia requiring repair at some point Diabetes mellitus, type II Hyperlipidemia Hypertension History of depression Plan: The patient was seen and evaluated Chest x-ray, labs and medications reviewed Currently stable and on room air Follow-up echocardiogram pending Home once cleared by CT services I have personally seen and examined the patient, performed the documentation and the assessment and plan as written. Number of minutes spent on the visit: 10.
--- NOTE | 2022-05-07 13:58 | P.DS ---
Providers Date of admission: 05/06/22 08:07 Expected date of discharge: 05/07/22 Attending physician: Gary Olivo Consults: 05/06/22 08:00 Consult to Anesthesia Routine Consulting Provider: Anesthesia,Services Consult Reason/Comments: Cardiac Surgery Pre-Op 05/06/22 12:31 Consult Physician Routine Consulting Provider: Dinh Payan Consult Reason/Comments: District Ranger Consult: post TAVR Do you want consulting provider notified?: Yes Consult Physician Routine Consulting Provider: Adam Escoto Consult Reason/Comments: post TAVR Do you want consulting provider notified?: Already Contacted Primary care physician: Stated None Hospital Course: MEDICAL HISTORY: 1. Severe symptomatic aortic valve stenosis, NYHA class III symptoms 2. Mild coronary artery disease 40-50% right coronary artery stenosis 3. Hypertension 4. Hyperlipidemia 5. Lightheadedness, likely appears more related to aortic valve 6. Chronic diastolic heart failure with an ejection fraction of 55-60% 7. Diabetes mellitus, type II 8. History of prostate cancer status post radiation 9. Osteoarthritis 10. Ventral hernia 11. Irritable bowel syndrome 12. History of anxiety/depression 13. Remote history of tobacco dependence PROCEDURE: 1. Percutaneous aortic valve implantation using a 34 mm Evolute-FX under CHANDU and fluoroscopy guidance 2. Transesophageal echocardiography performed by anesthesia 3. Ultrasound-guided access and repair of right femoral artery access site by Perclose closure device 4. Placement of temporary pacemaker wire 5. Aortic root angiography HISTORY OF PRESENT ILLNESS: This is a 66-year-old gentleman who follows on an outpatient basis with Dr. Maragret Grant for primary care and Dr. Margot Edwards for his cardiology care. The patient has a ventral hernia and was being evaluated for possible hernia repair at the [facility], as he has had complaints of abdominal pain and constipation. As part of his workup he was found to have severe aortic valve stenosis. Recently, the patient has felt like he has been slowing down, with complaints of bilateral lower extremity edema and 2 episodes of presyncope. The patient's initial transthoracic 2-D echocardiogram on 04/14/2022 showed a left ventricular ejection fraction estimated at 55%, mild mitral valve regurgitation, a possible bicuspid, severe aortic valve stenosis with a peak gradient of 5 mm/s, a peak gradient of 140.4 mmHg, mean gradient of 86.52 mmHg, mild tricuspid valve regurgitation, a normal pericardium and a normal size aortic root and proximal ascending aorta. Subsequently, he was worked up with a transesophageal echocardiogram and heart catheterization. The transesophageal echocardiogram demonstrated a heavily calcified aortic valve with severe restriction in leaflet mobility, possible bicuspid aortic valve and an aortic valve area of 0.4 cm by planimetry. The patient's heart catheterization demonstrated a 40-50% stenosis involving the distal right coronary artery and a critical aortic valve stenosis. After his workup was completed an STS risk score was calculated along with an incremental risk score and the patient was felt to be a low risk and a reasonable surgical candidate, although the patient wished to proceed with the transcatheter aortic valve replacement. The usual course of TAVR was discussed in detail with the patient and his , risks and benefits were reviewed, shared decision making between cardiology, surgery and the patient/family took place and the patient consented to proceed with the TAVR procedure. HOSPITAL COURSE: The patient was brought to the hospital on 05/06/2022, was taken to the extended stay area, prepared in the usual fashion, and subsequently taken to the cardiac catheterization laboratory where Dr. Olivo and Dr. Escoto completed TAVR procedure under general anesthesia with fluoroscopy and CHANDU. The valve was deployed under rapid ventricular pacing and proceeded without event. At the end of the procedure there was low gradient, hemodynamics were felt to be acceptable, and there was mild perivalvular regurgitation and a mean gradient of 6 mmHg. Upon completion of the procedure the patient was extubated and was transferred to the cardiovascular intensive care unit where he was recovered and monitored hemodynamically. His oxygen was titrated down, he was tolerating oral diet, his pain was controlled, follow-up TTE was stable, and he was ready to be discharged to home on postoperative day #1. He received written and verbal instruction regarding his medications, activity restrictions, signs and symptoms requiring physician notification, and follow-up appointments. Plan - Discharge Summary Discharge Rx Participant: Yes New Discharge Prescriptions: New Clopidogrel [Plavix] 75 mg PO DAILY #30 tab Continue Metoprolol Succinate [Toprol XL] 100 mg PO DAILY Insulin Detemir (Levemir) [Levemir] 38 unit SQ BID Atorvastatin [Lipitor] 80 mg PO HS buPROPion XL [Wellbutrin XL] 300 mg PO DAILY Valsartan/Hydrochlorothiazide [Valsartan-Hctz 160-25 mg Tab] 1 tab PO DAILY Vits A,C,E/Lutein/Minerals [Ocuvite with Lutein Tablet] 1 tab PO DAILY Multivitamins, Thera [Multivitamin (formulary)] 1 tab PO DAILY Arcadia-3 Fatty Acids/Fish Oil [Fish Oil 1,000 mg Softgel] 1 cap PO DAILY ALPRAZolam [Xanax] 0.25 mg PO TID PRN PRN Reason: Anxiety Acetaminophen Tab [Tylenol] 650 mg PO Q4H PRN PRN Reason: Pain Turmeric Root Extract [Turmeric] 1,000 mg PO DAILY metFORMIN HCL ER [Glucophage XR] 500 mg PO BID NIFEdipine [Adalat CC] 60 mg PO DAILY Unk D3/K2 1 tab PO DAILY Dicyclomine [Bentyl] 10 mg PO TID PRN PRN Reason: abdominal spasm Semaglutide [Ozempic] 0.25 mg SQ LENZ Aspirin 81 mg PO DAILY Discharge Medication List Insulin Detemir (Levemir) [Levemir] 38 unit SQ BID 12/27/15 [History] Metoprolol Succinate [Toprol XL] 100 mg PO DAILY 12/27/15 [History] Atorvastatin [Lipitor] 80 mg PO HS 08/05/17 [History] Valsartan/Hydrochlorothiazide [Valsartan-Hctz 160-25 mg Tab] 1 tab PO DAILY 08/05/17 [History] buPROPion XL [Wellbutrin XL] 300 mg PO DAILY 08/05/17 [History] ALPRAZolam [Xanax] 0.25 mg PO TID PRN 03/11/19 [History] Acetaminophen Tab [Tylenol] 650 mg PO Q4H PRN 03/11/19 [History] Multivitamins, Thera [Multivitamin (formulary)] 1 tab PO DAILY 03/11/19 [History] Arcadia-3 Fatty Acids/Fish Oil [Fish Oil 1,000 mg Softgel] 1 cap PO DAILY 03/11/19 [History] Turmeric Root Extract [Turmeric] 1,000 mg PO DAILY 03/11/19 [History] Vits A,C,E/Lutein/Minerals [Ocuvite with Lutein Tablet] 1 tab PO DAILY 03/11/19 [History] metFORMIN HCL ER [Glucophage XR] 500 mg PO BID 03/11/19 [History] Aspirin 81 mg PO DAILY 03/31/22 [History] NIFEdipine [Adalat CC] 60 mg PO DAILY 03/31/22 [History] Unk D3/K2 1 tab PO DAILY 03/31/22 [History] Dicyclomine [Bentyl] 10 mg PO TID PRN 05/01/22 [History] Semaglutide [Ozempic] 0.25 mg SQ LENZ 05/01/22 [History] Clopidogrel [Plavix] 75 mg PO DAILY #30 tab 05/07/22 [Rx] Follow up Appointment(s)/Referral(s): Margaret Grant DO [REFERRING] - As Needed Keith Edwards MD [STAFF PHYSICIAN] - 05/13/22 4:15 pm (Your appointment 05/13 is for a groin check. You also have a 30 day post TAVR echo 06/11/22 @ 7:15 and 30 day post TAVR follow up with Dr. Edwards 06/18/22 @ 4 pm. 1 year follow up echo 04/07/23 @ 11:15 am, 1 [address] follow up with Dr. Edwards 05/06/23 @1:15 pm) Clinic,Structural Heart [NON-STAFF] - 06/18/22 3:30 pm (Appt 06/18 is for 30 day TAVR follow up, please come to valve clinic before your appointment with Dr. Edwards. You also have a 1 year TAVR clinic follow up 05/06/23 @ 12:30, again please come before appointment with Dr. Edwards) Ambulatory/Diagnostic Orders: Complete Blood Count w/diff [LAB.AMB] Facility: [facility], Location: [facility] Complete Blood Count w/diff [LAB.AMB] Facility: [facility], Location: [facility] Comprehensive Metabolic Panel [LAB.AMB] Facility: [facility], Location: [facility] Comprehensive Metabolic Panel [LAB.AMB] Facility: [facility], Location: [facility] Activity/Diet/Wound Care/Special Instructions: DISCHARGE INSTRUCTIONS: 1. No driving for 1 week, or until physician gives their ok. 2. No lifting, pushing, or pulling more than 5-10 pounds for 1 week. 3. Hold both groins when you cough or sneeze for the next 2 weeks. Bruising is common, but report increased swelling, pain or fever >101F 4. Shower daily. No pool, hot tub, or bathtub for 1 week 5. No powders, lotions, ointments on incisions. 6. No straining, including for bowel movements. Use stool softner if necessary 7. Stairs are not an issue. Go slowly, using handrail and take 1 step at a time. Ambulate several times daily 8. Continue pain control per as needed orders. 9. Take only the medications listed on your discharge form 10. Eat low salt (limited to 2 grams or 2000 milligrams) daily, avoid adding salt, avoid canned/processed foods 11. Take your weight daily in the morning and record, bring with you to your follow up appointments 12. Keep all follow up appointments. You will need a valve clinic appointment at 30 days and 1 year post procedure for follow up 13. You have been referred to and are expected to begin Cardiac Rehab in approximately 4 weeks. 14. You will need antibiotics prior to any dental work, including cleanings, and any surgeries to prevent Endocarditis (bacterial infection in your heart) For any questions or concerns please call your valve coordinators: Sana or Albino @ Discharge Disposition: HOME SELF-CARE
--- NOTE | 2022-05-07 18:09 | CA ---
Transthoracic Echo Report Name: Jw Gonzales Age: 66 Gender: M : 1955 Exam Date: 05/07/2022 09:43 Exam Location: [facility] Ht (in): 71 Wt (lb): 227 Ordering Physician: Sana Montemayor Attending/Referring Phys: [id number], [employer] Specialist Geovanna Castrejon RDCS Procedure CPT: Indications: post TAVR Cardiac Hx: Technical Quality: Fair Contrast 1: Total Dose (mL): Contrast 2: Total Dose (mL): MEASUREMENTS (Male / Female) Normal Values 2D ECHO LV Diastolic Diameter PLAX 5.1 cm 4.2 - 5.9 / 3.9 - 5.3 cm LV Systolic Diameter PLAX 3.6 cm IVS Diastolic Thickness 1.7 cm 0.6 - 1.0 / 0.6 - 0.9 cm LVPW Diastolic Thickness 1.7 cm 0.6 - 1.0 / 0.6 - 0.9 cm LV Relative Wall Thickness 0.7 LVOT Diameter 1.5 cm LA Volume 92.7 cm??? 18 - 58 / 22 - 52 cm??? DOPPLER AV Peak Velocity 231.3 cm/s AV Peak Gradient 21.4 mmHg AV Mean Velocity 164.9 cm/s AV Mean Gradient 12.1 mmHg AV Velocity Time Integral 47.4 cm AI Peak Velocity 320.3 cm/s AI Peak Gradient 41.0 mmHg AI Pressure Half Time 809.1 ms LVOT Peak Velocity 151.4 cm/s LVOT Peak Gradient 9.2 mmHg LVOT Velocity Time Integral 31.0 cm LVOT Stroke Volume 55.0 cm??? LVOT Stroke Volume Index 24.7 ml/m??? LVOT Cardiac Index 2104.3 cm???/min???m??? AV Area Cont Eq vti 1.2 cm??? AV Area Cont Eq pk 1.2 cm??? MV Area PHT 2.7 cm??? Mitral E Point Velocity 105.1 cm/s Mitral A Point Velocity 108.4 cm/s Mitral E to A Ratio 1.0 MV Deceleration Time 284.8 ms MV E' Velocity 3.8 cm/s Mitral E to MV E' Ratio 27.5 FINDINGS Left Ventricle Severely increased septal wall thickness. Normal left ventricular systolic function with no obvious regional wall motion abnormalities. Left ventricular ejection fraction is estimated at55-60%. Right Ventricle Normal right ventricular size and function. Right ventricular systolic pressure within normal limits. Right Atrium Normal right atrial size. Left Atrium Mild to moderate left atrial dilatation. Mitral Valve Structurally normal mitral valve. Mild mitral annular calcification. Mild mitral regurgitation. Aortic Valve Normally functioning bioprosthetic aortic valve without stenosis with a peak velocity of 2.3m/s, peak gradient 21 mmHg, mean gradient 12 mmHg, and estimated aortic valve area of 1.2 cm???. mild aortic regurgitation. Tricuspid Valve Structurally normal tricuspid valve. Mild tricuspid regurgitation. Pulmonic Valve Pulmonic valve not well visualized. Pericardium No pericardial effusion. Aorta Normal size aortic root and proximal ascending aorta. CONCLUSIONS 1. Normal ventricle size and systolic function 2. Bioprosthetic aortic valve with a mean gradient of 12 mmHg and mild aortic regurgitation 3. Mild mitral and tricuspid regurgitation Previewed by: Dr. Reina Collado MD (Electronically Signed) Final Date: 07 May 2022 18:08
[2022-05-07] MEDS ORDERED: SENNOSIDES-DOCUSATE SODIUM 1 EACH TAB PO SCH (21:00)
[2022-05-10] MEDS ORDERED: PATIENT'S OWN (Semaglutide [Ozempic] 0.25 MG/0.2 ML Each) SQ SCH (09:00)
== END 2022-05-07 12:55 | disposition home or self-care (01) | DRG 267 ==
LOC: 2ORMAIN 08:07 → 2SICU 11:58
PROVIDERS: ADMIT Internal Medicine Interventional Cardiology; ATTEND Internal Medicine Interventional Cardiology
PROC: 5A0935A Assistance with Respiratory Ventilation, Less than 24 Consecutive Hours, High Flow/Velocity Cannula (ICD-10-PCS; 2022-05-06)
PROC: 02RF3JZ Replacement of Aortic Valve with Synthetic Substitute, Percutaneous Approach (ICD-10-PCS; principal; 2022-05-06 10:15)
PROC: B3101ZZ Fluoroscopy of Thoracic Aorta using Low Osmolar Contrast (ICD-10-PCS; 2022-05-06 10:15)
DX: I35.2 Nonrheumatic aortic (valve) stenosis with insufficiency (principal); Z00.6 Encounter for examination for normal comparison and control in clinical research program; I50.32 Chronic diastolic (congestive) heart failure; J98.11 Atelectasis; I11.0 Hypertensive heart disease with heart failure; E11.9 Type 2 diabetes mellitus without complications; F32.A Depression, unspecified; Z85.46 Personal history of malignant neoplasm of prostate; Z92.3 Personal history of irradiation; I25.10 Atherosclerotic heart disease of native coronary artery without angina pectoris; E78.5 Hyperlipidemia, unspecified; K43.2 Incisional hernia without obstruction or gangrene; N39.498 Other specified urinary incontinence; M19.90 Unspecified osteoarthritis, unspecified site; F41.9 Anxiety disorder, unspecified; K58.1 Irritable bowel syndrome with constipation; Z96.0 Presence of urogenital implants; Z87.19 Personal history of other diseases of the digestive system; Z87.891 Personal history of nicotine dependence; Z79.4 Long term (current) use of insulin; Z79.899 Other long term (current) drug therapy; Z79.84 Long term (current) use of oral hypoglycemic drugs; Z79.82 Long term (current) use of aspirin; Z79.85 Long-term (current) use of injectable non-insulin antidiabetic drugs; Z28.311 Partially vaccinated for COVID-19
CPT/HCPCS: 33210; 33362; 71045; 80053; 82330; 83735; 85025; 85610; 85730; 86850; 86891; 86900; 86901; 93306; 93312; 93320; 93325

== ENCOUNTER → 2022-06-18 | Outpatient (CLI) | payer MEDICARE ==
[2022-06-18 12:58] LABS: Basophils % (A) 1 %; Eosinophils # (A) 0.1 k/uL (0-0.7); Eosinophils % (A) 1 %; HCT 43.9 % (39.0-53.0); HGB 14.8 gm/dL (13.0-17.5); Lymphocytes # (A) 1.1 k/uL (1.0-4.8); Lymphocytes % (A) 18 %; MCH 28.1 pg (25.0-35.0); MCHC 33.8 g/dL (31.0-37.0); MCV 83.2 fL (80.0-100.0); Mean Platelet Volume 8.6; Monocytes # (A) 0.3 k/uL (0-1.0); Monocytes % (A) 5 %; Neutrophils # (A) 4.4 k/uL (1.3-7.7); Neutrophils % (A) 74 %; Platelet Count 200 k/uL (150-450); RBC 5.27 m/uL (4.30-5.90); RDW 13.6 % (11.5-15.5)
[2022-06-18 13:13] LABS: ALT 54 U/L (4-49); AST 36 U/L (17-59); African American GFR (CKD) >90 (>60 ml/min/1.73 sqM); Albumin 4.2 g/dL (3.5-5.0); Albumin/Globulin Ratio 1.3; Alkaline Phosphatase 95 U/L (38-126); Anion Gap 9 mmol/L; Blood Urea Nitrogen 11 mg/dL (9-20); Calcium 8.9 mg/dL (8.4-10.2); Carbon Dioxide 29 mmol/L (22-30); Chloride 103 mmol/L (98-107); Globulin 3.3 g/dL; Glucose 157 mg/dL (74-99); Non-African American GFR(CKD) >90 (>60 ml/min/1.73 sqM); Potassium 3.6 mmol/L (3.5-5.1); Sodium 141 mmol/L (137-145); Total Bilirubin 0.7 mg/dL (0.2-1.3); Total Protein 7.5 g/dL (6.3-8.2)
== END | disposition home or self-care (01) ==
LOC: LABWHC1 12:39
PROVIDERS: ATTEND Nurse Practitioner Acute Care
DX: I35.0 Nonrheumatic aortic (valve) stenosis (principal)
CPT/HCPCS: 36415; 80053; 85025